=== PATIENT | female | born 1945 | race Caucasian/White ===

== ENCOUNTER 2016-12-25 18:15 | Inpatient (IN) | payer MEDICARE ==
[~2016-12-25] VITALS: Ht 152.4 cm; Wt 62.3 kg
--- NOTE | ~2016-12-25 | PR ---
[place], [place] PROGRESS NOTE NAME: ABELARDO SOTO UNIT #: [id number] ROOM: 522 DOCTOR: ELIEZER YI MD,MARIAMA BIRTHDATE: [birth year] DOS: 12/28/2016 PULMONARY FOLLOWUP SUBJECTIVE: She has been sitting on the chair this morning. Shortness of breath and wheezing symptoms have been resolving. There were no symptoms of chest pain. OBJECTIVE: VITAL SIGNS: Show normal temperature, respiratory rate 20, heart rate of 78, blood pressure 153/84. Pulse oxygen saturation of the patient on room air was 98% saturation recorded. HEENT: No acute change. NECK: Supple. CARDIOVASCULAR: S1, S2 audible. LUNGS: No wheezing or crackles at this time. ABDOMEN: Soft, nontender, bowel sounds present. LABORATORY DATA: No new labs were done today. The blood culture from 12/25/2016 showed no bacterial growth. IMPRESSION: The patient has significant debility with acute exacerbation of chronic obstructive pulmonary disease, acute tracheobronchitis, and acute on chronic nicotine dependence as well. PLAN OF TREATMENT: No changes in the plan of therapy at this time. Continue the patient's current therapy, plan of management and care. Usual care. All other supportive plan and management as previously. MARIAMA MARTINS MD CM:PNTRANS [id number] MARIAMA YI MD 12/29/16 1514 interface
--- NOTE | ~2016-12-25 | PR ---
[place], [place] PROGRESS NOTE NAME: ABELARDO SOTO UNIT #: [id number] ROOM: 522 DOCTOR: ELIEZER YI MD,MARIAMA BIRTHDATE: [birth year] DOS: 12/29/2016 SUBJECTIVE: She was still noted symptoms of shortness of breath with exertion and/or debility. Denies symptoms of chest pain. OBJECTIVE: VITAL SIGNS: Normal temperature, respiratory rate 18, heart rate 99, blood pressure 130/72. Pulse oxygen saturation on room air was 93% saturation. HEENT: Examination shows no new change. NECK: Supple. CARDIOVASCULAR: S1, S2 is audible. LUNGS: The patient noted with moderate reduction in the breath sounds bilaterally. ABDOMEN: Soft, nontender. LABORATORY DATA: CBC today was noted as normal. Creatinine of the patient was noted as normal. IMPRESSION: The patient with ongoing acute exacerbation of chronic obstructive pulmonary disease, acute tracheobronchitis, and debility, still awaiting for this patient for admission in the alf facility. PLAN OF TREATMENT: No changes in the plan of management. Continue the patient's current therapy and care. Usual medical management and other treatments. MARIAMA MARTINS MD CM:PNTRANS [id number] MARIAMA YI MD 12/30/16 0718 interface
--- NOTE | ~2016-12-25 | CON ---
[place], [place] REPORT OF CONSULTATION [id number] UNIT #: [id number] ROOM: 522 DOCTOR: MARIAMA ARMAS MD BIRTHDATE: [birth year] DOS: 12/27/2016 REASON FOR CONSULTATION: Assess the patient with recurrent acute exacerbation of chronic obstructive pulmonary disease. HISTORY OF PRESENT ILLNESS: The patient is a 71-year-old female from a correction. The patient has been noted with history of chronic symptoms of shortness of breath. The patient has been noted worsening of the respiratory symptoms of shortness of breath, associated with wheezing, coughing with greenish sputum expectoration. The patient's symptoms have been noted progressively worsened and brought to the hospital for further assessment. The patient was noted with acute exacerbation of chronic obstructive pulmonary disease as well and required hospitalization. She denies symptoms of chest pain. Denies any symptoms of hemoptysis. REVIEW OF SYSTEMS: CONSTITUTIONAL: Fatigue and tiredness noted with no short of breath, fever, or chills. EYES: Denies any burning, redness, or tenderness. EARS, NOSE, THROAT: No sore throat, hoarseness, otalgia, postnasal drainage. CARDIOVASCULAR: Denies anginal pain, edema or pain of the lower extremities. GASTROINTESTINAL: Denies dysphagia, nausea, vomiting, diarrhea, abdominal pain, hematemesis, or melena. GENITOURINARY: Denies dysuria, suprapubic pain, hematuria. MUSCULOSKELETAL: Denies acute joint pain, redness, or tenderness. SKIN: Denies lesions or rashes. Remaining systems were reviewed with the patient and they were noted all negative. PAST MEDICAL HISTORY: 1. The patient was noted with history of longstanding centrilobular emphysema. 2. General anxiety disorder. 3. Gastroesophageal reflux. 4. Past history of CVA. 5. Hyperlipidemia. 6. Parkinsonism. 7. Degenerative arthritis. 8. History of depression. 9. Persistent nicotine dependence. SOCIAL HISTORY: The patient has been noted smoking cigarettes, a pack of cigarettes per day since age of [age] years old, actively smoked by the patient. There was no history of alcohol use or illicit drug use. PAST SURGICAL HISTORY: 1. The patient noted with left hip surgery. 2. Partial thyroidectomy, the patient with goiter. FAMILY HISTORY: The patient's father at 70 years old from complication of cancer. Mother at the age of 7070 years old, complication related to the [place], [place] REPORT OF CONSULTATION NAME: ABELARDO SOTO UNIT #: [id number] ROOM: 522 DOCTOR: ELIEZER YI MD,MARIAMA BIRTHDATE: [birth year] lung cancer. HOME MEDICATIONS: Noted use of aspirin, Lipitor, baclofen, nebulized by bronchodilators, Imdur. DRUG ALLERGY HISTORY: Noted as no known drug allergies. PHYSICAL EXAMINATION: GENERAL: A 71-year-old female who has been currently noted to be awake and alert without any distress at time of the assessment. Height is noted as 5 feet, weight of 137 pounds, BMI 26.8. VITAL SIGNS: Shows normal temperature, respiratory rate 20, heart rate of 108-78, blood pressure 127/53-142/75. Pulse oxygen saturation on room air is 94% saturation recorded. HEENT: No new change. Head is atraumatic. Eyes nonicterus. NECK: Supple. CARDIOVASCULAR: S1, S2 audible. LUNGS: Shows generalized reduced breath sounds noted in the lungs bilaterally with mild to moderate expiratory wheezing, no crackles. ABDOMEN: Soft, flat, nontender, bowel sounds present. CENTRAL NERVOUS SYSTEM: The patient's cranial nerves 2 through 12 intact. No focal deficit. MUSCULOSKELETAL: No acute deformities. SKIN: No lesions or rashes. MUSCULOSKELETAL: No deformities. LABORATORY DATA: CBC of the patient on 12/25/2016 on admission was noted essentially WBC count normal, hemoglobin 13.8, hematocrit 42.5 and platelet count 239,000. Lactic acid on 12/25/2016 was 2.0. PT/PTT on 12/25/2016 normal. CMP of the patient on 12/25/2016, glucose 153, BUN and creatinine was normal. CK-MB and troponin first set was normal. Additional 2 sets of CK-MB, troponin of the patient on 12/25/2016 was normal. CBC of patient 12/26/2016 remains normal. BMP of the patient 12/26/2016, glucose 145, BUN and creatinine was normal. Blood culture shows no bacterial growth. The chest x-ray of the patient 1 view, which were done in the Emergency Room on 12/25/2016 does not show any acute pulmonary infiltration, changes of COPD were noted. Possibility of some area of scarring in the left lower lobe cannot be completely excluded. IMPRESSION: 1. The patient had been currently admitted to the hospital noted with acute exacerbation of chronic obstructive pulmonary disease, acute tracheobronchitis, history of chronic nicotine dependence. The patient was advised for persistent chronic tobacco dependence. 2. Acute bacterial bronchitis as well. 3. Possibility of some area of scarring in the left lower lobe noted unclear significance. 4. Family history of lung cancer in the mother. PLAN OF TREATMENT: Continue Solu-Medrol, bronchodilators, oxygen supplementation and the antibiotics. Upon improvement in the respiratory [place], [place] REPORT OF CONSULTATION NAME: ABELARDO SOTO UNIT #: [id number] ROOM: 522 DOCTOR: ELIEZER YI MD,MARIAMA BIRTHDATE: [birth year] symptoms, switch the patient's oral medications and then discharge home. Other supportive therapy, plan of management at this time to be continued otherwise. Usual care. Further treatment changes will be done based on the progression of the illness. No other treatment changes at the present time. The patient has been addressed about the tobacco cessation, but she stated clearly she does not wish to stop smoking cigarettes and continue to smoke cigarettes at this time even with history of chronic obstructive pulmonary disease and lung cancer in her family members with high risk of malignancy could occur in the patient in the future. MARIAMA MARTINS MD CM:CONSTR:REPORT OF CONSULTATION 1648 12/28/16 0713 interface
[~2016-12-25 18:15] MED LIST: ACETAMINOPHEN-H1 TA2 PO; ALBUTEROL0.09 MG/A2 IH; ALLOPURINOL100 MG PO; AMOXICILLIN500 M3 PO; ASPI-COR81 M1 PO; ASPIR LOW81 MG PO; ASPIRIN ADULT L81 M1 PO; ATIVAN1 MG PO; ATORVASTATIN CA40 M1 PO; AZITHROMYCIN500 MG PO; B12,B-12,B 12500 MC1 PO; BIAXIN500 MG PO; BUSPIRONE HCL10 MG PO; CORDROL20 MG PO; CRESTOR10 MG PO; DARVOCET N 1001 TAB PO; DAYPRO600 M1 PO; DELTASONE5 MG PO; DOXYCYCLINE100 M2 PO; DUONEB 3 MG/3 ML3 M1 INH; FIORICET 325 MG1 TAB PO; Fioricet 325 MG1 TAB PO; HYDROCODONE BIT1 T11 PO; IMDUR SA30 MG PO; IMITREX100 MG PO; ISOSORBIDE MONO30 MG PO; LEVAQUIN750 MG PO; LIPITOR40 MG PO; MELOXICAM15 MG PO; MOTRIN800 MG PO; MUCINEX D 12001 TER PO; MUCINEX600 MG PO; NEBULIZER; OMEPRAZOLE D/R20 MG PO; PRED-PAK 455 MG PO; PREDNICOT10 MG PO; PREDNISONE10 MG PO; PREDNISONE20 MG PO; ROBAXIN500 MG PO; ROBAXIN750 MG PO; ROBITUSSIN AC 110 ML PO; ROBITUSSIN DM 105 ML PO; SYMBICORT1 AE1 IH; TESSALON PERLE100 M1 PO; TRAMADOL HCL50 MG PO; ULTRAM50 MG PO; VALIUM5 MG PO; VIBRAMYCIN100 MG PO; VICODIN 5/500 505 MG PO; VICODIN 500 MG-1 TAB PO; VOLTAREN50 M1 PO; ZITHROMAX TRI-500 M1 PO; ZITHROMAX Z PA250 MG PO; ZITHROMAX250 MG PO; ZITHROMAX500 MG PO
[2016-12-25 18:17] VITALS: BP 153/77
[2016-12-25 18:39] LABS: BASO # 0.1 10*3/uL (0.0-0.1); BASO % 0.5 % (0.0-1.0); EOS # 0.1 10*3/uL (0.0-0.4); EOS % 1.2 % (1.0-4.0); HEMATOCRIT 42.5 % (37.0-47.0); HEMOGLOBIN 13.8 g/dl (12.0-16.0); LYMPH # 1.7 10*3/uL (1.3-4.4); LYMPH % 16.8 % (27.0-41.0); MEAN CELL VOLUME 86.7 fl (81.0-99.0); MEAN CORPUSCULAR HGB 28.2 pg (27.0-31.0); MEAN CORPUSCULAR HGB CONC 32.5 g/dl (33.0-37.0); MEAN PLATELET VOLUME 9.6 fl (9.6-12.3); MONO # 0.6 10*3/uL (0.1-1.0); MONO % 6.3 % (3.0-9.0); NEUT # 7.4 10*3/uL (2.3-7.9); NEUT % 74.9 % (47.0-73.0); PLATELET COUNT AUTOMATED 239 10*3/uL (130-400); RED CELL DISTRI WIDTH 13.6 % (0-14.5); WHITE BLOOD COUNT 9.8 10*3/uL (4.8-10.8)
[2016-12-25 18:48] LABS: INTERNATIONAL NORM RATIO 0.9 (2.0-3.5)
[2016-12-25 18:55] LABS: ALBUMIN 3.7 gm/dl (3.1-4.5); BILIRUBIN, TOTAL 0.3 mg/dl (0.2-1.0); BUN 12 mg/dl (7-24); CARBON DIOXIDE 29 mmol/L (21-32); CHLORIDE 105 mmol/L (98-107); EST GLOM FILT AFRICAN AMERICAN > 60 ml/min; GLUCOSE 153 mg/dL (65-99); MAGNESIUM 2.2 mg/dL (1.5-2.1); POTASSIUM 3.8 mmol/L (3.5-5.1); SGOT/AST 16 IU/L (3-35); SGPT/ALT 15 U/L (12-78); SODIUM 141 mmol/L (136-145); TOTAL PROTEIN 7.3 gm/dL (6.4-8.2)
[2016-12-25 18:56] LABS: ALKALINE PHOSPHATASE 91 U/L (45-117); C-REACTIVE PROTEIN < 0.29 MG/DL (0-0.3); CKMB 0.7 ng/ml (0.5-3.6); CPK 62 U/L (26-192); TROPONIN I < 0.015 ng/ml (<0.045)
[2016-12-25] MEDS ORDERED: BACLOFEN PO (19:04)
[2016-12-25 20:00] VITALS: BP 156/75
[2016-12-25 20:30] VITALS: BP 156/74
[2016-12-26 00:21] VITALS: BP 148/72
[2016-12-26 04:00] VITALS: BP 155/70
[2016-12-26 07:31] LABS: BASO % 0.2 % (0.0-1.0); HEMATOCRIT 42.3 % (37.0-47.0); HEMOGLOBIN 13.5 g/dl (12.0-16.0); LYMPH # 0.8 10*3/uL (1.3-4.4); LYMPH % 13.5 % (27.0-41.0); MEAN CELL VOLUME 87.4 fl (81.0-99.0); MEAN CORPUSCULAR HGB 27.9 pg (27.0-31.0); MEAN CORPUSCULAR HGB CONC 31.9 g/dl (33.0-37.0); MEAN PLATELET VOLUME 9.7 fl (9.6-12.3); MONO # 0.1 10*3/uL (0.1-1.0); MONO % 1.2 % (3.0-9.0); NEUT # 4.8 10*3/uL (2.3-7.9); NEUT % 84.7 % (47.0-73.0); PLATELET COUNT AUTOMATED 232 10*3/uL (130-400); RED BLOOD COUNT 4.84 10*6/uL (4.10-5.10); RED CELL DISTRI WIDTH 13.6 % (0-14.5); WHITE BLOOD COUNT 5.6 10*3/uL (4.8-10.8)
[2016-12-26 07:50] LABS: HEMOGLOBIN A1c 5.9 % (4.8-5.6)
[2016-12-26 07:56] LABS: BUN 12 mg/dl (7-24); CARBON DIOXIDE 23 mmol/L (21-32); CHLORIDE 110 mmol/L (98-107); EST GLOM FILT AFRICAN AMERICAN > 60 ml/min; FREE T4 1.21 ng/dl (0.76-1.46); GLUCOSE 145 mg/dL (65-99); POTASSIUM 4.4 mmol/L (3.5-5.1); SODIUM 142 mmol/L (136-145)
[2016-12-26 08:00] VITALS: BP 135/97
[2016-12-26 08:01] LABS: THYROID STIM HORMONE (HS) < 0.005 uIU/ml (0.358-4.75)
[2016-12-26 08:05] LABS: VITAMIN D, 25-HYDROXY 15.6 ng/mL (30-100)
[2016-12-26 08:06] LABS: FOLIC ACID 16.66 ng/mL (>5.38)
[2016-12-26] MEDS ORDERED: BACLOFEN20 M1 PO (11:05)
[2016-12-26 12:00] VITALS: BP 133/53
[2016-12-26 16:00] VITALS: BP 149/84
[2016-12-26 20:00] VITALS: BP 124/70
[2016-12-27] VITALS: BP 124/67
[2016-12-27 04:00] VITALS: BP 125/70
[2016-12-27 08:00] VITALS: BP 142/75
[2016-12-27 12:00] VITALS: BP 127/53
[2016-12-27] MEDS ORDERED: VENTOLIN H0.09 MG/AC INH (15:25)
[2016-12-27] MEDS ORDERED: PREDNISONE10 MG PO (15:25)
[2016-12-27] MEDS ORDERED: D-1000 185 MG-11 TAB PO (15:25)
[2016-12-27] MEDS ORDERED: LEVOFLOXACIN500 MG PO (15:25)
[2016-12-27 16:00] VITALS: BP 132/61
[2016-12-27 20:00] VITALS: BP 140/70
[2016-12-28] VITALS: BP 153/84
[2016-12-28 08:00] VITALS: BP 149/63
[2016-12-28 12:00] VITALS: BP 130/56
[2016-12-28 16:00] VITALS: BP 117/69
[2016-12-28 19:58] VITALS: BP 116/70
[2016-12-29] VITALS: BP 152/69
[2016-12-29 07:39] LABS: BASO % 0.6 % (0.0-1.0); EOS # 0.3 10*3/uL (0.0-0.4); EOS % 3.9 % (1.0-4.0); HEMOGLOBIN 14.3 g/dl (12.0-16.0); LYMPH # 1.7 10*3/uL (1.3-4.4); LYMPH % 23.5 % (27.0-41.0); MEAN CELL VOLUME 87.2 fl (81.0-99.0); MEAN CORPUSCULAR HGB 27.7 pg (27.0-31.0); MEAN CORPUSCULAR HGB CONC 31.8 g/dl (33.0-37.0); MEAN PLATELET VOLUME 10.1 fl (9.6-12.3); MONO # 0.6 10*3/uL (0.1-1.0); MONO % 7.7 % (3.0-9.0); NEUT # 4.6 10*3/uL (2.3-7.9); PLATELET COUNT AUTOMATED 233 10*3/uL (130-400); RED BLOOD COUNT 5.16 10*6/uL (4.10-5.10); RED CELL DISTRI WIDTH 13.7 % (0-14.5); WHITE BLOOD COUNT 7.2 10*3/uL (4.8-10.8)
[2016-12-29 08:00] VITALS: BP 152/84
[2016-12-29 08:08] LABS: EST GLOM FILT AFRICAN AMERICAN > 60 ml/min
[2016-12-29 12:00] VITALS: BP 130/72
== END 2016-12-29 15:44 | disposition other institution (70) | DRG 871 ==
LOC: ED 18:15 → 5E 18:54 → EDHOLD 18:54 → 5E 19:51
PROVIDERS: Emergency Medicine; Internal Medicine; Internal Medicine Hospice and Palliative Medicine
DX: A41.9 Sepsis, unspecified organism (principal); J18.9 Pneumonia, unspecified organism; I67.1 Cerebral aneurysm, nonruptured; I11.0 Hypertensive heart disease with heart failure; I50.32 Chronic diastolic (congestive) heart failure; J44.1 Chronic obstructive pulmonary disease with (acute) exacerbation; J44.0 Chronic obstructive pulmonary disease with (acute) lower respiratory infection; G20 Parkinson's disease; G89.29 Other chronic pain; M25.552 Pain in left hip; F32.9 Major depressive disorder, single episode, unspecified; F41.1 Generalized anxiety disorder; K21.9 Gastro-esophageal reflux disease without esophagitis; E78.5 Hyperlipidemia, unspecified; F17.210 Nicotine dependence, cigarettes, uncomplicated; D72.810 Lymphocytopenia; R73.9 Hyperglycemia, unspecified; E83.41 Hypermagnesemia; J20.9 Acute bronchitis, unspecified; E89.0 Postprocedural hypothyroidism; Z80.1 Family history of malignant neoplasm of trachea, bronchus and lung; Z79.82 Long term (current) use of aspirin; Z71.6 Tobacco abuse counseling; Z86.73 Personal history of transient ischemic attack (TIA), and cerebral infarction without residual deficits; Z79.899 Other long term (current) drug therapy

== ENCOUNTER → 2017-02-16 | Outpatient (CLI) | payer MEDICARE ==
[~2017-02-16] MED LIST changes: +BACLOFEN PO; +BACLOFEN20 M1 PO; +D-1000 185 MG-11 TAB PO; +LEVOFLOXACIN500 MG PO; +VENTOLIN H0.09 MG/AC INH
== END | disposition home or self-care (01) ==
LOC: MRI 07:42
DX: M54.2 Cervicalgia (principal); G31.85 Corticobasal degeneration

== ENCOUNTER → 2017-04-07 | Outpatient (CLI) | payer MEDICARE | END | disposition home or self-care (01) | LOC: RAD 11:00 | DX: Z13.820 Encounter for screening for osteoporosis (principal); M81.0 Age-related osteoporosis without current pathological fracture; N95.9 Unspecified menopausal and perimenopausal disorder ==

== ENCOUNTER → 2018-01-31 | Outpatient (CLI) | payer MEDICARE | END | disposition home or self-care (01) | LOC: ORTHO 03:25 | DX: M19.072 Primary osteoarthritis, left ankle and foot (principal); M81.8 Other osteoporosis without current pathological fracture ==

== ENCOUNTER → 2019-03-24 | Outpatient (CLI) | payer MEDICARE ==
--- NOTE | ~2019-03-24 | PROC NOTE ---
[place], [place] PROCEDURE NOTE NAME: MICHELLE SHEA UNIT #: [id number] ROOM: DOCTOR: HECTORMARIELA BIRTHDATE: [birth year] DOS: 03/24/2019 MODIFIED BARIUM SWALLOW ORDERING PHYSICIAN: Dr. Torres. RADIOLOGIST: Dr. Mondragon. BACKGROUND INFORMATION: Michelle Shea a 73-year-old female was seen for a modified barium swallow as an outpatient. The patient comes from a detention and reported that she is having difficulty swallowing pills. MEDICAL HISTORY: Significant for CVA x 3, GERD, COPD and anxiety and depression. The patient receives a regular diet and thin liquid. She was alert and cooperative for the examination. Respiratory status was noted as congested. The patient was not requiring oxygen. Oral peripheral examination revealed a couple bottom teeth only, which were noted to be in poor condition. Lingual, labial, and buccal skills were grossly within normal limits in terms of strength, range of motion, and coordination. The patient was able to volitionally cough and swallow. METHODS AND MATERIALS USED FOR THE EXAM: The patient was positioned in the lateral plane and the exam was viewed under fluoroscopy. The patient was presented with a variety of consistencies to assess swallowing skills including applesauce mixed with barium presented in half teaspoon amounts, barium-coated banana and sandwich given in bite size pieces and thin liquid barium taken by cup and barium pill. LABIAL SEAL: Grossly within normal limits. The patient displayed mastication that was slow, but functional due to dentition. No oral difficulty was displayed. PHARYNGEAL PHASE: Unremarkable. ESOPHAGEAL PHASE: This phase of the swallow was not formally assessed during this exam. IMPRESSIONS AND RECOMMENDATIONS: Based upon assessment results, this 73-year-old patient presents with swallowing skills that are within functional limits. Recommend she remain on present diet with use of universal safe swallow precautions. Recommend the patient take pills in applesauce and follow with liquid as needed. No followup therapy is warranted. Results and recommendations were shared with the patient and a written copy was provided for education of detention staff. Thank you very much for this referral. Should you have any questions regarding this patient, please contact the speech pathologist at [phone]. [place], [place] PROCEDURE NOTE NAME: MICHELLE SHEA UNIT #: [id number] ROOM: DOCTOR: MARIELA YOUNG BIRTHDATE: [birth year] MARIELA YOUNG CM:PROCNOTE:PROCEDURE NOTE [id number] MARIELA YOUNG
--- NOTE | ~2019-03-24 | SLPIE ---
[place], [place] CLINICAL TRIALS ASSISTANT INITIAL EVALUATION NAME: ABELARDO SOTO UNIT #: [id number] ROOM: DOCTOR: JEREMIAS CASAS DO Patient Name: ABELARDO SOTO Date: 03/24/2019 Patient Date of : 1945 [facility] Start of Care: 03/24/2019 Reason for Treatment: RAD/SH Primary Care Physician: HAILEY CHAU FACP, M.D. Referring Physician: JEREMIAS CASAS DO Speech-Language Pathology Initial Evaluation Reason for Visit RAD/SH Arrival Information Subjective Initial evaluation created to generate electronic medical record. [facility] for full [facility]. Medical History Past Medical History [facility] Visit Start Time 9:00 AM Visit End Time 10:00 AM Visit Duration 60 minutes Procedures CPT [place] Code Intervention Modifier Minutes Units 4500939 MOTION FLUOROSCOPY/SWALLOW 60 1 41142 Total Timed Minutes 0 Total Treatment Minutes 60 Therapist Signature(s) Signed By: Racheal Tovar [facility] License #: [id number] 04/03/2019, 1:52 PM CM:MARCELA 32 32 IS THERAPY [facility]
--- NOTE | ~2019-03-24 | SHMRC ---
[place], [place] THERAPY MRC NAME: ABELARDO SOTO UNIT #: [id number] ROOM: DOCTOR: JEREMIAS CASAS DO Patient Name: ABELARDO SOTO Date: 03/24/2019 Patient Number: [id number] Treating Therapist:Racheal Tovar Patient Date of : 1945 Location: [facility] Patient Reason for Visit RAD/SH Electronic Signature(s) Signed By: Date: Racheal Tovar 04/03/2019 13:52:47 Entered By: Racheal Tovar on 04/03/2019 13:49:12 Arrival Information Patient Name: ABELARDO SOTO Date: 03/24/2019 Patient Number: [id number] Treating Therapist:Racheal Tovar Patient Date of : 1945 Location: [facility] Patient Subjective Initial evaluation created to generate electronic medical record. Refer to medical record in [facility] for full evaluation. Electronic Signature(s) Signed By: Date: Racheal Tovar 04/03/2019 13:52:47 Entered By: Racheal Tovar on 04/03/2019 13:49:12 Medical History Patient Name: ABELARDO SOTO Date: 03/24/2019 Patient Number: [id number] Treating Therapist:Racheal Tovar Patient Date of : 1945 Location: [facility] Patient Past Medical History Electronic Signature(s) Signed By: Date: Racheal Tovar 04/03/2019 13:52:47 Entered By: Racheal Tovar on 04/03/2019 13:49:12 Allergy List Patient Name: ABELARDO SOTO. Date: 03/24/2019 Patient Number: [id number] Treating Therapist:Racheal Tovar Patient Date of : 1945 Location: [facility] Patient Electronic Signature(s) Signed By: Date: Racheal Tovar 04/03/2019 13:52:47 Entered By: Racheal Tovar on 04/03/2019 13:49:12 Arrival Information Patient Name: ABELARDO SOTO Date: 03/24/2019 Patient Number: [id number] Treating Therapist:Racheal Tovar Patient Date of : 1945 Location: [facility] Patient Subjective Initial evaluation created to generate electronic medical record. Refer to medical record in [facility] for full evaluation. Electronic Signature(s) [place], [place] THERAPY [facility]C NAME: ABELARDO SOTO UNIT #: [id number] ROOM: DOCTOR: JEREMIAS CASAS DO Signed By: Date: Racheal Tovar 04/03/2019 13:52:47 Entered By: Racheal Tovar on 04/03/2019 13:49:12 [facility] Patient Name: ABELARDO SOTO Date: 03/24/2019 Patient Number: [id number] Treating Therapist:Racheal Tovar Patient Date of : 1945 Location: [facility] Patient Visit Start Time 9:00 AM Visit End Time 10:00 AM Visit Duration 60 minutes Procedures CPT [place] Code Intervention Modifier Minutes Units 58662 [id number] MOTION FLUOROSCOPY/SWALLOW 60 1 Total Timed Minutes 0 Total Treatment Minutes 60 Electronic Signature(s) Signed By: Date: Racheal Tovar 04/03/2019 13:52:47 Entered By: Racheal Tovar on 04/03/2019 13:50:07 Chief Complaint Patient Name: ABELARDO SOTO. Date: 03/24/2019 Patient Number: [id number] Treating Therapist:Racheal Tovar Patient Date of : 1945 Location: [facility] Patient Reason for Visit RAD/SH Electronic Signature(s) Signed By: Date: Racheal Tovar 04/03/2019 13:52:47 Entered By: Racheal Tovar on 04/03/2019 13:49:12 Medical History Patient Name: ABELARDO SOTO. Date: 03/24/2019 Patient Number: [id number] Treating Therapist:Racheal Tovar Patient Date of : 1945 Location: [facility] Patient Past Medical History Electronic Signature(s) Signed By: Date: Racheal Tovar 04/03/2019 13:52:47 Entered By: Racheal Tovar on 04/03/2019 13:49:12 Allergy List Patient Name: ABELARDO SOTO Date: 03/24/2019 Patient Number: [id number] Treating Therapist:Racheal Tovar Patient Date of : 1945 Location: [facility] Patient Electronic Signature(s) Signed By: Date: [place], [place] THERAPY [facility]C NAME: ABELARDO SOTO UNIT #: [id number] ROOM: DOCTOR: JEREMIAS CASAS DO, Maryann 04/03/2019 13:52:47 Entered By: Racheal Tovar on 04/03/2019 13:49:12 CM:[facility] 32 32 IS THERAPY [place]
--- NOTE | ~2019-03-24 | SLPPOC ---
[place], [place] ELECTRICIAN RADIO PLAN OF CARE NAME: ABELARDO SOTO UNIT #: [id number] ROOM: DOCTOR: JEREMIAS CASAS DO Patient Name: ABELARDO SOTO Date: 03/24/2019 Patient Date of : 1945 [facility] Start of Care: 03/24/2019 Reason for Treatment: RAD/SH Visits since start of care: 1 Primary Care Physician: HAILEY CHAU FACP, M.D. Referring Physician: JEREMIAS CASAS DO Speech-Language Pathology Initial Evaluation Plan of Care Reason for Visit RAD/SH Arrival Information Subjective Initial evaluation created to generate electronic medical record. Refer to medical record in [facility] for full evaluation. Medical History Past Medical History Therapist Signature(s) Signed By: Racheal Tovar [facility] License #: [id number] 04/03/2019, 1:52 PM Referring Physician Signature I certify the need for these services furnished under this plan of treatment and while under my care. JEREMIAS CASAS DO Date/Time CM:SLPPOC 32 32 IS THERAP[facility] [place]
--- NOTE | 2019-03-24 10:23 | NUR ---
SPEECH PATHOLOGY Outpatient MBS completed as per orders. Patient is from a correction and reported that she is having difficulty swallowing pills. Medical history is significant for CVA X3, GERD, COPD, anxiety/depression. Patient receives a regular diet and thin liquid. She was alert and cooperative and displayed lingual/labial/buccal skills grossly WNL in terms of strength, ROM and coordination. Patient had a couple bottom teeth only, noted to be in poor condition. She was assessed with puree, solids including banana and sandwich, thin liquid and barium pill. Mastication was slow but functional, due to dentition. Patient swallowed all consistencies with no overt difficulty and there was no penetration/aspiration or residue with any item. Recommend patient remain on present diet with use of universal safe swallow precautions. Recommend patient take pills in applesauce and follow with liquid as needed. No follow up is warranted. Results and rubi. were shared with patient and a written copy was provided for education of NH staff. Dictated report to follow. Thank you for this referral. MARIELA YOUNG MSCCC-CIRCULAR HEAD SAW OPERATOR
== END | disposition home or self-care (01) ==
LOC: RAD/SH 08:45
DX: R05 Cough (principal)

== ENCOUNTER → 2019-04-03 | Outpatient (CLI) | payer MEDICARE | END | disposition home or self-care (01) | LOC: RAD 03-14 13:00 | DX: M81.0 Age-related osteoporosis without current pathological fracture (principal) ==

== ENCOUNTER 2019-12-19 13:16 | Inpatient (IN) | payer MEDICARE ==
[~2019-12-19] VITALS: Wt 63.7 kg
[2019-12-19 13:20] VITALS: BP 172/88
[2019-12-19 14:14] LABS: BASO # 0.1 10*3/uL (0.0-0.1); BASO % 0.8 % (0.0-1.0); EOS # 0.2 10*3/uL (0.0-0.4); EOS % 3.1 % (1.0-4.0); HEMATOCRIT 47.7 % (37.0-47.0); LYMPH # 1.6 10*3/uL (1.3-4.4); LYMPH % 19.9 % (27.0-41.0); MEAN CELL VOLUME 89.8 fl (81.0-99.0); MEAN CORPUSCULAR HGB 28.6 pg (27.0-31.0); MEAN CORPUSCULAR HGB CONC 31.9 g/dl (33.0-37.0); MEAN PLATELET VOLUME 9.6 fl (9.6-12.3); MONO # 0.5 10*3/uL (0.1-1.0); MONO % 6.9 % (3.0-9.0); NEUT # 5.4 10*3/uL (2.3-7.9); PLATELET COUNT AUTOMATED 230 10*3/uL (130-400); RED BLOOD COUNT 5.31 10*6/uL (4.10-5.10); RED CELL DISTRI WIDTH 12.9 % (0-14.5); WHITE BLOOD COUNT 7.9 10*3/uL (4.8-10.8)
[2019-12-19 14:37] LABS: ALBUMIN 3.1 gm/dl (3.1-4.5); ALKALINE PHOSPHATASE 94 U/L (45-117); BUN 12 mg/dl (7-24); CHLORIDE 108 mmol/L (98-107); CREATININE 0.76 mg/dL (0.55-1.02); SGOT/AST 14 IU/L (3-35); SGPT/ALT 15 U/L (12-78); SODIUM 142 mmol/L (136-145); TOTAL PROTEIN 7.1 gm/dL (6.4-8.2)
[2019-12-19 14:42] LABS: TROPONIN I < 0.015 ng/ml (<0.045)
[2019-12-19 17:45] VITALS: BP 148/82
[2019-12-19 19:15] VITALS: BP 137/74
--- NOTE | 2019-12-19 19:15 | NUR ---
A 74, admitted to , under the services of REZA Peña DO with a diagnosis of CHF. Chief complaint is MULIPLE. Patient arrived via bed from ER. Monitor applied. Initial assessment completed. Vital signs taken and recorded. REZA PEÑA DO notified of admission to the unit. Orders received. See assessment for past medical history, medications and allergies. Patient and/or family oriented to unit. [address] visitation policy reviewed. Clothing/patient valuable form completed. EXCORIATION UNDER BILATERAL BREASTS. NO OPEN AREAS FOUND ON ADMISSION. ADEN BINGHAM
--- NOTE | 2019-12-19 20:00 | NUR ---
DR BELLO AWARE OF EXCORIATION UNDER BREASTS, STATES OKAY TO PUT IN [place]STATIN POWDER UNDER HIS NAME.
--- NOTE | 2019-12-19 20:01 | NUR ---
DR BELLO AWARE THAT PT IS UNSURE OF HOME MEDICATIONS. WILL PASS ALONG TO AM SHIFT THAT HER PHARMACY WILL NEED CALLED.
[2019-12-19 20:07] LABS: BILIRUBIN NEGATIVE (NEGATIVE); CLARITY CLEAR (CLEAR); COLOR YELLOW (YELLOW); GLUCOSE NEGATIVE (NEGATIVE); KETONE NEGATIVE (NEGATIVE); SPECIFIC GRAVITY 1.015 (1.005-1.030)
[2019-12-19 20:08] LABS: BACTERIA 1+; BLOOD NEGATIVE (NEGATIVE); LEUKO ESTERASE 2+ (NEGATIVE); NITRITE NEGATIVE (NEGATIVE); PH 6.5 (5.0-9.0); UROBILINOGEN 0.2 E.U./dl (0.2-1.0); WBC 16-20 wbc/hpf (0-5)
--- NOTE | 2019-12-19 21:55 | NUR ---
MEDICATED WITH TYLENOL FOR C/O BILATERAL LOWER LEG PAIN.
--- NOTE | 2019-12-19 23:00 | NUR ---
RESTING IN BED WITH EYES CLOSED; TYLENOL APPARENTLY EFFECTIVE. 02 BEING MAINTAINED; BED ALARM INTACT. CALL LIGHT WITHIN REACH.
[2019-12-20] VITALS: BP 117/61
--- NOTE | 2019-12-20 05:00 | NUR ---
RESTING IN BED WITH EYES CLOSED. BED ALARM INTACT; CALL LIGHT WITHIN REACH.
[2019-12-20 06:19] LABS: BASO % 0.4 % (0.0-1.0); EOS % 0.8 % (1.0-4.0); HEMATOCRIT 48.1 % (37.0-47.0); LYMPH # 0.7 10*3/uL (1.3-4.4); LYMPH % 13.6 % (27.0-41.0); MEAN CELL VOLUME 87.9 fl (81.0-99.0); MEAN CORPUSCULAR HGB CONC 31.8 g/dl (33.0-37.0); MEAN PLATELET VOLUME 9.7 fl (9.6-12.3); MONO # 0.1 10*3/uL (0.1-1.0); MONO % 2.3 % (3.0-9.0); NEUT # 4.3 10*3/uL (2.3-7.9); NEUT % 82.5 % (47.0-73.0); PLATELET COUNT AUTOMATED 248 10*3/uL (130-400); RED BLOOD COUNT 5.47 10*6/uL (4.10-5.10); RED CELL DISTRI WIDTH 12.6 % (0-14.5); WHITE BLOOD COUNT 5.2 10*3/uL (4.8-10.8)
[2019-12-20 06:37] LABS: BUN 16 mg/dl (7-24); CHLORIDE 102 mmol/L (98-107); CHOLESTEROL 238 mg/dL (<200); CREATININE 0.89 mg/dL (0.55-1.02); HDL CHOLESTEROL 51 mg/dl (40-60); LDL CHOLESTEROL 169 mg/dL (9-159); POTASSIUM 4.1 mmol/L (3.5-5.1); SODIUM 140 mmol/L (136-145); TRIGLYCERIDES 91 mg/dl (<150); VLDL CHOLESTEROL 18 mg/dL (6-40)
--- NOTE | 2019-12-20 07:47 | NUR ---
PHYSICAL THERAPY Screen and PT eval received will follow thank you. Ivis Knight PT
[2019-12-20 08:00] VITALS: BP 122/73
--- NOTE | 2019-12-20 10:00 | NUR ---
[facility]INGHAM CATHETER REMOVED PER ORDER.
--- NOTE | 2019-12-20 10:53 | NUR ---
Occupational Therapy evaluation completed on 4E with full evaluation to follow. Recommend occupational therapy per plan of care and HH upon discharge. Thank you for this referral. Teresa Boo OTR/L
--- NOTE | 2019-12-20 10:54 | NUR ---
PHYSICAL THERAPY Physical Therapy evaluation completed on 4E with full evaluation to follow. Low complexity PT evaluation per chart review and evaluation, [id number]. Recommend physical therapy per plan of care and Home Health upon discharge. Thank you for this referral. Latia Bassett,PT,DPT
[2019-12-20 11:45] VITALS: BP 147/66
[2019-12-20 16:00] VITALS: BP 123/60
[2019-12-20 20:00] VITALS: BP 111/76
--- NOTE | 2019-12-20 21:53 | NUR ---
PATIENT RESTING; EASILY AWAKENS FOR MEDICATIONS. ALL NEEDS MET. BED IN LOWEST, LOCKED POS, CALL LIGHT IN REACH.
[2019-12-21] VITALS: BP 92/65
--- NOTE | 2019-12-21 04:15 | NUR ---
PATIENT ASSIST TO BSC +STANDBY ASSIST. ASSISTED BACK INTO BED, NO FURTHER NEEDS, WILL CONT TO MONITOR.
[2019-12-21 06:30] LABS: BUN 22 mg/dl (7-24); CHLORIDE 104 mmol/L (98-107); CREATININE 0.74 mg/dL (0.55-1.02); POTASSIUM 3.5 mmol/L (3.5-5.1); SODIUM 141 mmol/L (136-145)
--- NOTE | 2019-12-21 08:21 | NUR ---
NO VOICED COMPLAINTS. CALL LIGHT IN REACH. TOLERATED MEDS WELL. EDUCATED ON DVT AND NEED FOR XARELTO. PT VERBALIZED UNDERSTANDING. HACKING COUGH NOTED. PT STATES IT IS NON-PRODUCTIVE.
--- NOTE | 2019-12-21 09:00 | NUR ---
Can Slider in to talk to patient. Patient states lives at home with alone. There are 12 steps in the home. Physician: none at present Pharmacy: [facility] Home health services: none at present Patient's level of ADLs: MINIMAL ASSIST Patient has working utilities: all working DME: nebulzier,wheelchair Follow-up physician's appointment after d/c: will be made by hospitalist nruse director upon discharge with doctor of patient's choise Does patient want to access PORTAL?: no Discharge plan discussed with patient, she states she lives at home alone, she was a half-way resident of [facility], for 3 years, along with her , she stated she decided she didn't want to be in the nursing facility any more and her brother helped her move back to her home. she states she has 12 steps and a wheelchair at home, discussed with her if she was not able to return home and care for herself which nursing facility she would like to go to. she became angry and stated she would never go back to a nursing facility, she stated she would return home and her family would help her if needed. discussed with her [facility] and educated her on the services they provide. she was receptive to this given choice of companies she choose [facility]. will send a referral to [facility] when patient is medically stable for discharge. case management will follow. CRISTIANE PEARCE
--- NOTE | 2019-12-21 10:04 | NUR ---
09:10 PT ASSESSED FOR HOME O2: RA REST SPO2: 93% HR 98/M RA AMBULATING: SPO2 92-93% HR 114 KINGSLEY 5 PT DOES NOT QUALIFY FOR HOME O2.
--- NOTE | 2019-12-21 10:28 | NUR ---
CALLED TO ROOM. PT STATES SHE ACCIDENTALLY PULLED HER IV OUT. BLEEDING CONTROLLED AND GUAZE APPLIED. WILL MONITOR. PT TO BE DISCHARGED LATER TODAY. REFUSING NEW IV AT THIS TIME.
--- NOTE | 2019-12-21 10:30 | NUR ---
case management received a call from patient's brother Ron regarding home equipement. he stated he would like patient to have a hospital bed. educated him that there is specific criteria that patient would need to have a hospital bed and at this time she does not have that criteria. also educated him that patient would have home health services to see her at home, Ron stated he would also be there to help her. Ron stated he would transport patient home when she is discharged
--- NOTE | 2019-12-21 11:00 | NUR ---
PHYSICAL THERAPY Patient seen this am 1;1 for therapy visit and was sitting up on EOB upon therapist arrival. Patient identified by name / and recorded resting HR 95 bpm. OT assistant media planner was also present for observation only this session as patient reports no c/o's pain. Patient transfers sit to stand SBA and ambulates with use of wh walker, 15'x 1 to bathroom, then additional 50'x 1, SBA, demonstrating slow, steady fara. Patient returned to EOB sit as lunch arrived with increased fatigue and remained with call light, tray table and telephone, recording HR 115 bpm following gait ex. Will continue per POC as tolerated, total treatment time 16 minutes. Negro Baldwin, GRANTS ADMINISTRATOR
--- NOTE | 2019-12-21 11:00 | NUR ---
case management left a secure voicemail for Cathy, academic affairs coordinator for [facility], that patient is a discharge to home today
--- NOTE | 2019-12-21 11:20 | NUR ---
OT NOTE Pt was seen this A.M. 1:1 for 15 minute OT session. Upon arrival pt was sitting upright on the EOB. Pt identified by name and and had no complaints at this time, pt's resting heart rate was 93 bpm. While sitting EOB pt donned B socks with supervision. Sit to stand completed from bed level with SBA and use of w/w for UE support. Functional mobility was then completed to the bathroom with SBA and use of w/w. There she transferred on/off standard commode with supervision. She then stood sink side while washing her hands with SBA for safety. Throughout acitivity pt's heart rate increased to 115 bpm. Functional mobility was then completed back to the EOB where she was left sitting upright with call light in hand, tray table in place, and phone in reach. Continue with rec D/C plan to home with home health. MANOJ Marquez/Marysol
[2019-12-21 12:00] VITALS: BP 126/86
--- NOTE | 2019-12-21 14:14 | NUR ---
SHIFT CHART CHECK COMPLETED.
[2019-12-21] MEDS ORDERED: DOXYCYCLINE MO100 M1 PO (14:59)
[2019-12-21] MEDS ORDERED: XARE15TA PO (14:59)
[2019-12-21] MEDS ORDERED: LASIX40 MG PO (14:59)
[2019-12-21] MEDS ORDERED: PREDNISONE10 MG PO (14:59)
--- NOTE | 2019-12-21 15:34 | NUR ---
Discharge instructions reviewed with patient/family. Patient receptive and verbalizes understanding. Follow-up care arranged. Written instructions given to patient/family. SHARDA ALEX
--- NOTE | 2019-12-22 07:27 | NUR ---
PHYSICAL THERAPY CO-SIGN I approve of the Phyical Therapy notes written above. Ivis Knight PT
--- NOTE | 2019-12-22 07:40 | NUR ---
OCCUPATIONAL THERAPY CO-SIGN I approve of the Occupational Therapy notes written above. MICHAEL MADRIGAL, OTR/L
== END 2019-12-21 15:34 | disposition home health service (06) | DRG 190 ==
LOC: ED 13:16 → 4E 16:21 → EDHOLD 16:21 → 4E 17:10
PROVIDERS: Internal Medicine; Nurse Practitioner Family; Student in an Organized Health Care Education/Training Program; ADMIT Internal Medicine
DX: J44.1 Chronic obstructive pulmonary disease with (acute) exacerbation (principal); I50.33 Acute on chronic diastolic (congestive) heart failure; I82.431 Acute embolism and thrombosis of right popliteal vein; F33.0 Major depressive disorder, recurrent, mild; I11.0 Hypertensive heart disease with heart failure; E83.41 Hypermagnesemia; F17.210 Nicotine dependence, cigarettes, uncomplicated; E87.8 Other disorders of electrolyte and fluid balance, not elsewhere classified; M79.672 Pain in left foot; G89.29 Other chronic pain; M25.552 Pain in left hip; E78.5 Hyperlipidemia, unspecified; F41.1 Generalized anxiety disorder; K21.9 Gastro-esophageal reflux disease without esophagitis; G20 Parkinson's disease; Z86.73 Personal history of transient ischemic attack (TIA), and cerebral infarction without residual deficits; Z80.1 Family history of malignant neoplasm of trachea, bronchus and lung; Z79.82 Long term (current) use of aspirin; Z79.899 Other long term (current) drug therapy

== ENCOUNTER 2019-12-28 11:40 | Observation (INO) | payer MEDICARE ==
[~2019-12-28] VITALS: Ht 152.4 cm; Wt 63.6 kg
[~2019-12-28 11:40] MED LIST changes: +DOXYCYCLINE MO100 M1 PO; +LASIX40 MG PO; +XARE15TA PO
[2019-12-28 12:12] LABS: BASO # 0.1 10*3/uL (0.0-0.1); BASO % 0.5 % (0.0-1.0); EOS # 0.2 10*3/uL (0.0-0.4); EOS % 1.5 % (1.0-4.0); HEMATOCRIT 47.6 % (37.0-47.0); LYMPH # 2.9 10*3/uL (1.3-4.4); MEAN CELL VOLUME 88.3 fl (81.0-99.0); MEAN CORPUSCULAR HGB CONC 31.7 g/dl (33.0-37.0); MEAN PLATELET VOLUME 9.5 fl (9.6-12.3); MONO # 0.9 10*3/uL (0.1-1.0); MONO % 6.4 % (3.0-9.0); NEUT # 9.5 10*3/uL (2.3-7.9); NEUT % 69.6 % (47.0-73.0); PLATELET COUNT AUTOMATED 266 10*3/uL (130-400); RED BLOOD COUNT 5.39 10*6/uL (4.10-5.10); RED CELL DISTRI WIDTH 13.1 % (0-14.5); WHITE BLOOD COUNT 13.6 10*3/uL (4.8-10.8)
[2019-12-28 12:23] LABS: ACT PARTIAL THROMBO TIME 22.6 SECONDS (20.0-32.1); INTERNATIONAL NORM RATIO 0.9 (2.0-3.5)
[2019-12-28 12:32] LABS: ALBUMIN 3.3 gm/dl (3.1-4.5); ALKALINE PHOSPHATASE 87 U/L (45-117); BUN 22 mg/dl (7-24); CHLORIDE 103 mmol/L (98-107); CREATININE 0.87 mg/dL (0.55-1.02); POTASSIUM 3.7 mmol/L (3.5-5.1); SGOT/AST 15 IU/L (3-35); SGPT/ALT 19 U/L (12-78); SODIUM 137 mmol/L (136-145); TOTAL PROTEIN 6.9 gm/dL (6.4-8.2)
[2019-12-28 12:33] LABS: LIPASE 426 U/L (73-393)
[2019-12-28 12:35] LABS: TROPONIN I < 0.015 ng/ml (<0.045)
[2019-12-28 13:00] VITALS: BP 138/62
[2019-12-28 14:00] VITALS: BP 140/68
[2019-12-28 15:00] VITALS: BP 143/98
[2019-12-28 15:20] LABS: BILIRUBIN NEGATIVE (NEGATIVE); CLARITY CLEAR (CLEAR); COLOR YELLOW (YELLOW); GLUCOSE NEGATIVE (NEGATIVE); KETONE NEGATIVE (NEGATIVE)
[2019-12-28 15:21] LABS: BACTERIA TRACE; BLOOD NEGATIVE (NEGATIVE); LEUKO ESTERASE NEGATIVE (NEGATIVE); NITRITE NEGATIVE (NEGATIVE); RBC 0-2 rbc/hpf (0-2); UROBILINOGEN 0.2 E.U./dl (0.2-1.0)
[2019-12-28 16:00] VITALS: BP 142/62
[2019-12-28 16:50] VITALS: BP 122/60
[2019-12-28 20:00] VITALS: BP 140/60
[2019-12-29] VITALS: BP 135/48
[2019-12-29 06:22] LABS: BASO % 0.4 % (0.0-1.0); EOS % 0.1 % (1.0-4.0); LYMPH # 1.4 10*3/uL (1.3-4.4); LYMPH % 13.2 % (27.0-41.0); MEAN CELL VOLUME 89.1 fl (81.0-99.0); MEAN CORPUSCULAR HGB 28.1 pg (27.0-31.0); MEAN CORPUSCULAR HGB CONC 31.6 g/dl (33.0-37.0); MEAN PLATELET VOLUME 9.9 fl (9.6-12.3); MONO # 0.6 10*3/uL (0.1-1.0); MONO % 5.6 % (3.0-9.0); NEUT # 8.5 10*3/uL (2.3-7.9); NEUT % 79.7 % (47.0-73.0); PLATELET COUNT AUTOMATED 254 10*3/uL (130-400); RED BLOOD COUNT 5.05 10*6/uL (4.10-5.10); RED CELL DISTRI WIDTH 13.1 % (0-14.5); WHITE BLOOD COUNT 10.6 10*3/uL (4.8-10.8)
[2019-12-29 06:44] LABS: BUN 21 mg/dl (7-24); CHLORIDE 106 mmol/L (98-107); CREATININE 0.87 mg/dL (0.55-1.02); POTASSIUM 4.6 mmol/L (3.5-5.1); SODIUM 139 mmol/L (136-145)
[2019-12-29 09:58] VITALS: BP 110/58
[2019-12-29] MEDS ORDERED: XARELTO1 EACH PO (10:49)
== END 2019-12-29 11:41 | disposition home health service (06) ==
LOC: ED 11:40 → EDHOLD 15:06 → 4E 15:06
PROVIDERS: Emergency Medicine; Student in an Organized Health Care Education/Training Program; ADMIT Internal Medicine
DX: R07.89 Other chest pain (principal); J44.1 Chronic obstructive pulmonary disease with (acute) exacerbation; J18.9 Pneumonia, unspecified organism; A41.9 Sepsis, unspecified organism; D72.829 Elevated white blood cell count, unspecified; D72.810 Lymphocytopenia; E83.41 Hypermagnesemia; R73.9 Hyperglycemia, unspecified; E78.5 Hyperlipidemia, unspecified; F41.1 Generalized anxiety disorder; K21.9 Gastro-esophageal reflux disease without esophagitis; G20 Parkinson's disease; I50.32 Chronic diastolic (congestive) heart failure; I11.0 Hypertensive heart disease with heart failure; F17.210 Nicotine dependence, cigarettes, uncomplicated

== ENCOUNTER 2020-01-18 09:56 | Emergency (ER) | payer MEDICARE ==
[~2020-01-18 09:56] MED LIST changes: +XARELTO1 EACH PO
== END 2020-01-18 11:23 | disposition home or self-care (01) ==
LOC: ED 09:56
DX: R60.0 Localized edema (principal); I10 Essential (primary) hypertension; I25.2 Old myocardial infarction; Z86.73 Personal history of transient ischemic attack (TIA), and cerebral infarction without residual deficits; J44.9 Chronic obstructive pulmonary disease, unspecified; E78.5 Hyperlipidemia, unspecified; Z79.899 Other long term (current) drug therapy; Z79.82 Long term (current) use of aspirin; Z87.891 Personal history of nicotine dependence

== ENCOUNTER 2020-02-04 18:01 | Inpatient (IN) | payer MEDICARE ==
[~2020-02-04] VITALS: Ht 152.4 cm; Wt 62.3 kg
[2020-02-04] VITALS (11 sets, daily range): BP systolic 101–127; BP diastolic 37–74
[2020-02-04 18:43] LABS: MEAN CELL VOLUME 85.6 fl (81.0-99.0); MEAN CORPUSCULAR HGB 24.3 pg (27.0-31.0); MEAN CORPUSCULAR HGB CONC 28.4 g/dl (33.0-37.0); MEAN PLATELET VOLUME 9.6 fl (9.6-12.3); NUCLEATED RED BLOOD CELL 0.2 % (0.0-0.0); PLATELET COUNT AUTOMATED 410 10*3/uL (130-400); RED BLOOD COUNT 2.22 10*6/uL (4.10-5.10); RED CELL DISTRI WIDTH 16.8 % (0-14.5); WHITE BLOOD COUNT 8.4 10*3/uL (4.8-10.8)
[2020-02-04 18:50] LABS: INTERNATIONAL NORM RATIO 1.2 (2.0-3.5)
[2020-02-04 19:01] LABS: ALBUMIN 2.6 gm/dl (3.1-4.5); ALKALINE PHOSPHATASE 99 U/L (45-117); BUN 37 mg/dl (7-24); CHLORIDE 106 mmol/L (98-107); CREATININE 1.22 mg/dL (0.55-1.02); POTASSIUM 4.6 mmol/L (3.5-5.1); SGOT/AST 16 IU/L (3-35); SGPT/ALT 15 U/L (12-78); SODIUM 139 mmol/L (136-145); TOTAL PROTEIN 6.3 gm/dL (6.4-8.2)
[2020-02-04 19:02] LABS: TROPONIN I < 0.015 ng/ml (<0.045)
[2020-02-04 19:06] LABS: BASOPHILS 1 % (0-1); TOTAL CELLS COUNTED 100 #CELLS
[2020-02-04 19:07] LABS: MICROCYTOSIS SLIGHT; PLATELET SUFFICIENCY HIGH (NORMAL); POLYCHROMASIA SLIGHT
--- NOTE | 2020-02-04 19:59 | NUR ---
PTS BROTHER CONTACTED AND I DID ASK PT IF IT WAS OK FOR ME TO SPEAK TO BROTHER TARI. SHE GIVES ME VERBAL PERMISSION TO SPEAK TO BROTHER.
--- NOTE | 2020-02-04 21:31 | NUR ---
A 74, admitted to , under the services of BETTY Maldonado DO with a diagnosis of GI BLEED. Chief complaint is BILATERAL ARM PAIN. Patient arrived via bed from ER. . Initial assessment completed. Vital signs taken and recorded. BETTY MALDONADO DO notified of admission to the unit. Orders received. See assessment for past medical history, medications and allergies. Patient and/or family oriented to [facility]. visitation policy reviewed. Clothing/patient valuable form completed. DALLAS ALEX RN
--- NOTE | 2020-02-04 21:31 | NUR ---
PATIENT ARRIVED FROM ER ESCORTED BY FRANKLIN WARE. PATIENT ARRIVED RECEIVING A UNIT OF PACKED BLOOD CELLS INTO LEFT HAND, BLOOD TRANSFUSING WITHOUT INCIDENT, PATIENT DENIES ANY TRANSFUSION REACTION AT THIS TIME, WILL CONTINUE TO MONITOR. BEDSIDE REPORT RECEIVED AT THIS TIME. PATIENT ASSESSMENT COMPLETED WITHOUT INCIDENT. NO WOUNDS NOTED AT THIS TIME, SEVERAL ECCHYMOTIC AREAS TO BILATERAL ARMS FROM PREVIOUS ADMISSION NOTED. PATIENT ORIENTED TO CALL LIGHT AND ROOM. ADVISED OF FURTHER BLOOD TRANSFUSIONS. WILL CONTINUE TO MONITOR, CALL LIGHT WITHIN REACH.
[2020-02-04] MEDS ORDERED: POTASSIUM CHLO10 ME4 PO (21:44)
--- NOTE | 2020-02-04 22:15 | NUR ---
SPOKE WITH TO VERIFY BLOOD TRANSFUSION ORDERS HE STATED TO "GIVE THE SECOND UNIT AND AFTER THE SECOND UNIT IS DONE THEY WOULD SEE WHAT THE AM BLOOD RESULTS SHOWED TO DETERMINE IF THE OTHER UNITS ARE NEEDED."
--- NOTE | 2020-02-04 22:50 | NUR ---
FIRST UNIT OF PACKED RED BLOOD CELLS COMPLETED AT THIS TIME, IV SITE FLUSHED. PATIENT BILATERAL LUNGS REMAIN DIMINISHED WITH FAINT EXPIRITORY WHEEZES. WILL CONTINUE TO MONITOR.
--- NOTE | 2020-02-04 23:14 | NUR ---
SECOND UNIT OF PACKED RED BLOOD CELLS STARED AT THIS TIME. PATIENT BILATERAL LUNGS REMAIN DIMINISHED WITH FAINT EXPIRATORY WHEEZES. CALL LIGHT WITHIN REACH. TRANSFUSION REACTION SIGNS AND SYMPTOMS REINFORCED WITH PATIENT AT THIS TIME. WILL CONTINUE TO MONITOR.
[2020-02-05] VITALS (8 sets, daily range): BP systolic 95–135; BP diastolic 38–71
--- NOTE | 2020-02-05 00:16 | NUR ---
PRN TYLENOL GIVEN AT THIS TIME WITH A SIP OF WATER FOR COMPLAINT OF 8/10 PAIN IN BILATERAL LEGS AND ARMS PER PATIENT. A&O X3, CALL LIGHT WITHIN REACH, WILL CONTINUE TO MONITOR.
--- NOTE | 2020-02-05 01:00 | NUR ---
PATIENT STATED THAT PRN TYLENOL HELPED TAKE HER PAIN TO A 5/10 IN HER BILATERAL LEGS AND ARMS. CALL LIGHT WITHIN REACH, WILL CONTINUE TO MONITOR.
--- NOTE | 2020-02-05 01:00 | NUR ---
UNIT NUMBER 2 PACKED RED BLOOD CELLS COMPLETE AT THIS TIME. PATIENT DENIES ANY OF THE TRANSFUSION REACTION SIGNS OR SYMPTOMS AT THIS TIME. BILATERAL LUNGS REMAIN DIMINISHED WITH FAINT EXPIRATORY WHEEZES. CALL LIGHT WITHIN REACH, WILL CONTINUE TO MONITOR.
--- NOTE | 2020-02-05 05:55 | NUR ---
URINE FOR UA REFLEX UC COLLECTED AT THIS TIME AND SENT TO LAB.
[2020-02-05 06:22] LABS: BUN 31 mg/dl (7-24); CHLORIDE 109 mmol/L (98-107); CREATININE 0.91 mg/dL (0.55-1.02); POTASSIUM 4.2 mmol/L (3.5-5.1); SODIUM 143 mmol/L (136-145)
--- NOTE | 2020-02-05 06:29 | NUR ---
24 HOUR CHART CHECK COMPLETE
[2020-02-05 06:30] LABS: BASO % 0.4 % (0.0-1.0); EOS # 0.2 10*3/uL (0.0-0.4); EOS % 2.2 % (1.0-4.0); HEMATOCRIT 26.1 % (37.0-47.0); LYMPH # 1.5 10*3/uL (1.3-4.4); LYMPH % 21.5 % (27.0-41.0); MEAN CELL VOLUME 86.4 fl (81.0-99.0); MEAN CORPUSCULAR HGB 26.5 pg (27.0-31.0); MEAN CORPUSCULAR HGB CONC 30.7 g/dl (33.0-37.0); MEAN PLATELET VOLUME 9.6 fl (9.6-12.3); MONO # 0.6 10*3/uL (0.1-1.0); MONO % 9.2 % (3.0-9.0); NEUT # 4.6 10*3/uL (2.3-7.9); NEUT % 65.8 % (47.0-73.0); NUCLEATED RED BLOOD CELL 0.3 % (0.0-0.0); PLATELET COUNT AUTOMATED 360 10*3/uL (130-400); RED BLOOD COUNT 3.02 10*6/uL (4.10-5.10); RED CELL DISTRI WIDTH 16.4 % (0-14.5); WHITE BLOOD COUNT 6.9 10*3/uL (4.8-10.8)
[2020-02-05 07:01] LABS: BILIRUBIN NEGATIVE (NEGATIVE); CLARITY CLOUDY (CLEAR); COLOR YELLOW (YELLOW); GLUCOSE NEGATIVE (NEGATIVE); KETONE NEGATIVE (NEGATIVE); SPECIFIC GRAVITY 1.015 (1.005-1.030)
[2020-02-05 07:02] LABS: BACTERIA 4+; BLOOD 3+ (NEGATIVE); LEUKO ESTERASE 2+ (NEGATIVE); NITRITE POSITIVE (NEGATIVE); UROBILINOGEN 0.2 E.U./dl (0.2-1.0); WBC TNTC wbc/hpf (0-5)
--- NOTE | 2020-02-05 07:20 | NUR ---
PT BED ALARM GOING OFF, IN ROOM AT PATIENT IS GOING TO THE BEDSIDE COMMODE. PT IS SOB ON EXERTION AND IS NOT WEARING HER OXYGEN. PT IS PLACED BACK IN BED WITH THE ALARM ON AND OXYGEN IS PUT ON. CALL LIGHT WITHIN REACH, WILL CONTINUE TO MONITOR
--- NOTE | 2020-02-05 07:48 | NUR ---
Shift chart check completed.
--- NOTE | 2020-02-05 08:07 | NUR ---
BROTHER BELEN CALLED IN AND STATES HE WILL BE IN AT 0900 TO SIGN CONSENT PAPERS FOR EGD
--- NOTE | 2020-02-05 08:08 | NUR ---
PHYSICAL THERAPY Nursing screen received and chart reviewed. Patient admitted for GI bleed. Recommend skilled PT services if decline in functional mobility presents. Thank you. Latia Bassett,PT,DPT
--- NOTE | 2020-02-05 08:31 | NUR ---
DR BELLO MADE AWARE OF HOME MEDS NEEDING CONTINUED
--- NOTE | 2020-02-05 09:00 | NUR ---
Houseman in to talk to patient. Patient states lives at home with brother and sister in law. There are 12 steps in the home. Physician: katty perez [facility] health services: [facility] Patient's level of ADLs: MINIMAL ASSIST Patient has working utilities: all working DME: walker, wheelchair, nebulizer, no home oxygen Follow-up physician's appointment after d/c: will be made by hospitalist nurse director upon discharge Does patient want to access PORTAL?: no Discharge plan discussed with patient, she lives at home with her brother and sister in law, she currently has [facility] and would like to continue with their services when she is discharge. discussed with her a short term long-term stay if needed for 5 days of rehab which facility she would like to go to . sh stated she would not be going to a short term skilled she would be returning home and resume her home health, case management will follow. CRISTIANE PEARCE
--- NOTE | 2020-02-05 11:05 | NUR ---
PT OFF FLOOR FOR SURGERY
--- NOTE | 2020-02-05 12:29 | NUR ---
Nursing screen received and chart reviewed. Patient admitted from home for a GI bleed. If patient has a decline in ADLs, transfers, or functional mobility, please send OT orders. Thank you. Mandie Guillory, OTR/L
--- NOTE | 2020-02-05 13:19 | NUR ---
PT BACK FROM SURGERY
--- NOTE | 2020-02-05 15:39 | NUR ---
PT SOUNDS AND LOOK SOB AND IS REFUSING TO PUT HER NASAL CANNULA ON. WILL CONTINUE TO MONITOR
--- NOTE | 2020-02-05 15:43 | NUR ---
CALLED DR CHAPA TO LET HIM KNOW THAT THE PATIENT REFUSES TO DRINK THE GOLYTELY. WILL ADD ORDERS DESIRED
--- NOTE | 2020-02-05 15:46 | NUR ---
IN TO PATIENTS ROOM TO LET HER KNOW THAT THE PATIENT REFUSES TO DRINK ANY PREP FOR THE COLONOSCOPY, AND REFUSING THE COLONOSCOPY. CALLED DR CHAPA TO LET HIM KNOW, AND HE STATES "OK THAT THERE IS NOTHING WE CAN DO IF SHE IS REFUSING THE TESTS"
--- NOTE | 2020-02-05 15:56 | NUR ---
CALLED DR BELLO AND TOLD HIM THAT PT IS REFUSING MED PREP FOR COLONOSCOPY AND REFUSING THE COLONOSCOPY TOMORROW
[2020-02-05 16:30] LABS: BASO % 0.5 % (0.0-1.0); EOS # 0.1 10*3/uL (0.0-0.4); EOS % 1.2 % (1.0-4.0); HEMATOCRIT 26.5 % (37.0-47.0); LYMPH # 1.2 10*3/uL (1.3-4.4); LYMPH % 14.1 % (27.0-41.0); MEAN CELL VOLUME 87.7 fl (81.0-99.0); MEAN CORPUSCULAR HGB 26.5 pg (27.0-31.0); MEAN CORPUSCULAR HGB CONC 30.2 g/dl (33.0-37.0); MONO # 0.6 10*3/uL (0.1-1.0); MONO % 7.2 % (3.0-9.0); NEUT # 6.2 10*3/uL (2.3-7.9); NEUT % 76.3 % (47.0-73.0); PLATELET COUNT AUTOMATED 343 10*3/uL (130-400); RED BLOOD COUNT 3.02 10*6/uL (4.10-5.10); RED CELL DISTRI WIDTH 16.4 % (0-14.5); WHITE BLOOD COUNT 8.2 10*3/uL (4.8-10.8)
--- NOTE | 2020-02-05 16:54 | NUR ---
DR CHAPA ON THE FLOOR AND STATES TO MAKE PT REGULAR DIET AND CANCEL HER COLONOSCOPY TOMORROW
--- NOTE | 2020-02-05 20:20 | NUR ---
PATIENT ASSESSMENT COMPLETED AT THIS TIME WITHOUT INCIDENT. PATIENT DENIES ANY CHEST PAIN/PRESSURE, DOES COMPLAIN OF SLIGHT SHORTNESS OF BREATH, NASAL CANNULA OXYGEN REAPPLIED, PATIENT STATED "THAT FEELS BETTER". PATIENT QUESTIONING WHY IV LINE IS STILL ATTACHED AND IF SHE "HAS TO KEEP THAT THING LIKE THAT ALL NIGHT", ADVISED PATIENT THAT THIS RN WOULD CALL THE PHYSICIAN TO CLARIFY ORDERS. SPOKE WITH PATIENT CONCERNING COLONOSCOPY THAT WAS ORDERED FOR TOMORROW AND PATIENT STATED "I CAN'T TOLERATE THAT STUFF ANY OF IT AND I'M NOT DOING IT". A&O X3, CALL LIGHT WITHIN REACH, WILL CONTINUE TO MONITOR.
--- NOTE | 2020-02-05 21:47 | NUR ---
SPOKE WITH DR. CHAPA AT THIS TIME TO CLARIFY IV NORMAL SALINE ORDER, RELAYED TO HIM PATIENT STATEMENT CONCERNING HER DISLIKE AND REQUEST TO HAVE THE IV FLUIDS STOPPED. ORDERS RECEIVED, SEE EMAR. ALSO RELAYED THIS RN ATTEMPT TO EDUCATED PATIENT ON IMPORTANCE OF COLONOSCOPY IN RELATION TO ANEMIA AND BLOOD LOSS AND HER SUBSEQUENT REFUSAL. HE WILL SEE PATIENT TOMORROW AND SPEAK WITH HER AGAIN.
[2020-02-06] VITALS: BP 122/51
--- NOTE | 2020-02-06 03:51 | NUR ---
24 HOUR CHART CHECK COMPLETE
--- NOTE | 2020-02-06 05:40 | NUR ---
IV started left forearm with #22 angiocath after 1 attempts. The IV site was prepped with Chloraprep. Heparin lock attached. Sterile dressing applied. Patient tolerated precedure well. Procedure performed according to [facility] policy & procedure. KANDACE QUINTANA
[2020-02-06 06:57] LABS: BASO % 0.4 % (0.0-1.0); EOS # 0.1 10*3/uL (0.0-0.4); EOS % 1.8 % (1.0-4.0); HEMATOCRIT 28.3 % (37.0-47.0); LYMPH # 0.9 10*3/uL (1.3-4.4); LYMPH % 11.8 % (27.0-41.0); MEAN CELL VOLUME 86.8 fl (81.0-99.0); MEAN CORPUSCULAR HGB 26.1 pg (27.0-31.0); MEAN PLATELET VOLUME 9.3 fl (9.6-12.3); MONO # 0.7 10*3/uL (0.1-1.0); MONO % 8.4 % (3.0-9.0); NEUT % 77.2 % (47.0-73.0); PLATELET COUNT AUTOMATED 368 10*3/uL (130-400); RED BLOOD COUNT 3.26 10*6/uL (4.10-5.10); RED CELL DISTRI WIDTH 16.6 % (0-14.5); WHITE BLOOD COUNT 7.8 10*3/uL (4.8-10.8)
[2020-02-06 07:25] LABS: CHLORIDE 109 mmol/L (98-107); CREATININE 0.82 mg/dL (0.55-1.02); SODIUM 141 mmol/L (136-145)
[2020-02-06 07:27] LABS: BUN 15 mg/dl (7-24)
--- NOTE | 2020-02-06 07:46 | NUR ---
DR ULLOA IN TO SEE PATIENT
--- NOTE | 2020-02-06 07:48 | NUR ---
IN PT ROOM AND DISCUSSED WITH DR ULLOA THAT SHE IS REFUSING PREP FOR COLONOSCOPY AND REFUSING TO HAVE THE TEST DONE. PT STATES "I HAVE NO BURNING WHEN I PEE, I AM READY TO GO HOME". CALL LIGHT NEAR PATIENT, WILL CONTINUE TO MONITOR
[2020-02-06 08:00] VITALS: BP 110/50
--- NOTE | 2020-02-06 08:41 | NUR ---
BROTHER TARI CALLED TO SEE HOW PATIENT IS DOING.
--- NOTE | 2020-02-06 09:00 | NUR ---
case management visits with patient, again discussed with her a short term intermediate for rehab prior to returning home, she became upset and stated she would never return to a nursing facility, she stated she would be returning home, she currently has [facility] and will resume when patient is discharged, case management will follow
--- NOTE | 2020-02-06 10:36 | NUR ---
MATERIAL ANALYST RECEIVED A CALL FROM LAWRENCE SAINI, PATIENTS BROTHER. PASSWORD VERFIED. PATIENTS BROTHER STATED THAT HE WANTED THE PATIENT PLACED IN A RESIDENTIAL. MATERIAL ANALYST EXPLAINED TO THE BROTHER THE PATIENT IS OF SOUND MIND AND CANNOT BE FORCED TO A NH AGAINST HER WILL. PATIENTS BROTHER STATED HE HAS AN ALTERNATIVE WAY TO GET HER THERE. MATERIAL ANALYST ASKED WHAT THE ALTERNATIVE WAY IS, PATIENTS BROTHER STATED THAT HE WOULD GET THE [facility] PAPERS AND PLACE HER. MATERIAL ANALYST EXPLAINED UNLESS THE PATIENT IS FOUND INCOMPETENT, THE PAPERS HOLD NO VALUE AND THAT THE PATIENT STILL CANNOT BE FORCED AGAINST HER WILL. PATIENTS BROTHER STATED TO JUST HAVE THE PATIENT RETURN HOME.
--- NOTE | 2020-02-06 10:43 | NUR ---
DR FERMIN IN TO SEE PATIENT
[2020-02-06] MEDS ORDERED: PROTONIX TR40 M1 PO (10:49)
[2020-02-06] MEDS ORDERED: CEFUROXIME AXE500 MG PO (10:49)
[2020-02-06] MEDS ORDERED: Carafate1 GM PO (10:49)
--- NOTE | 2020-02-06 11:14 | NUR ---
IN PT ROOM TO GO OVER DISCHARGE PLANS. PT IV IS TAKEN OUT AT THIS TIME. PT IS AWARE THAT MEDICATIONS ARE SENT TO HER PHARMACY. NO FURTHER QUESTIONS AT THIS TIME, WILL WAIT UNTIL RIDE GETS HERE
--- NOTE | 2020-02-06 11:30 | NUR ---
PT LEAVING THE FLOOR AT THIS TIME WITH ALL OF HER BELONGINGS
--- NOTE | 2020-02-06 12:22 | NUR ---
case management notified [facility] patient was discharged to home today
== END 2020-02-06 11:30 | disposition home health service (06) | DRG 378 ==
LOC: ED 18:01 → EDHOLD 19:58 → 4E 19:58
PROVIDERS: Internal Medicine; Physician Assistant; ADMIT Emergency Medicine
PROC: 30233N1 Transfusion of Nonautologous Red Blood Cells into Peripheral Vein, Percutaneous Approach (ICD-10-PCS; 2020-02-04)
PROC: 0DB68ZX Excision of Stomach, Via Natural or Artificial Opening Endoscopic, Diagnostic (ICD-10-PCS; principal; 2020-02-05)
DX: K29.01 Acute gastritis with bleeding (principal); N39.0 Urinary tract infection, site not specified; E44.0 Moderate protein-calorie malnutrition; I50.32 Chronic diastolic (congestive) heart failure; K26.0 Acute duodenal ulcer with hemorrhage; D50.0 Iron deficiency anemia secondary to blood loss (chronic); E83.41 Hypermagnesemia; J44.9 Chronic obstructive pulmonary disease, unspecified; F17.210 Nicotine dependence, cigarettes, uncomplicated; R73.9 Hyperglycemia, unspecified; E78.5 Hyperlipidemia, unspecified; F41.1 Generalized anxiety disorder; G20 Parkinson's disease; F32.9 Major depressive disorder, single episode, unspecified; E03.9 Hypothyroidism, unspecified; M19.90 Unspecified osteoarthritis, unspecified site; M25.552 Pain in left hip; G89.29 Other chronic pain; Z66 Do not resuscitate; Z51.5 Encounter for palliative care; M79.672 Pain in left foot; K21.9 Gastro-esophageal reflux disease without esophagitis; K44.9 Diaphragmatic hernia without obstruction or gangrene; I11.0 Hypertensive heart disease with heart failure; Z80.1 Family history of malignant neoplasm of trachea, bronchus and lung; I25.2 Old myocardial infarction; Z82.49 Family history of ischemic heart disease and other diseases of the circulatory system; Z86.73 Personal history of transient ischemic attack (TIA), and cerebral infarction without residual deficits; Z86.718 Personal history of other venous thrombosis and embolism; Z79.899 Other long term (current) drug therapy; Z79.82 Long term (current) use of aspirin; Z68.26 Body mass index [BMI] 26.0-26.9, adult

== ENCOUNTER 2020-02-15 15:33 | Emergency (ER) | payer MEDICARE ==
[~2020-02-15] VITALS: Ht 152.4 cm; Wt 59.9 kg
[~2020-02-15 15:33] MED LIST changes: +CEFUROXIME AXE500 MG PO; +Carafate1 GM PO; +POTASSIUM CHLO10 ME4 PO; +PROTONIX TR40 M1 PO
[2020-02-15 16:15] LABS: MEAN CELL VOLUME 84.2 fl (81.0-99.0); MEAN CORPUSCULAR HGB 24.4 pg (27.0-31.0); MEAN CORPUSCULAR HGB CONC 28.9 g/dl (33.0-37.0); MEAN PLATELET VOLUME 9.1 fl (9.6-12.3); PLATELET COUNT AUTOMATED 432 10*3/uL (130-400); RED BLOOD COUNT 2.34 10*6/uL (4.10-5.10); RED CELL DISTRI WIDTH 17.9 % (0-14.5); WHITE BLOOD COUNT 11.3 10*3/uL (4.8-10.8)
[2020-02-15 16:19] LABS: HEMATOCRIT 19.7 % (37.0-47.0)
[2020-02-15 16:24] LABS: ACT PARTIAL THROMBO TIME 22.5 SECONDS (20.0-32.1); INTERNATIONAL NORM RATIO 1.1 (2.0-3.5)
[2020-02-15 16:30] LABS: ALBUMIN 2.7 gm/dl (3.1-4.5); ALKALINE PHOSPHATASE 88 U/L (45-117); BUN 30 mg/dl (7-24); CHLORIDE 99 mmol/L (98-107); CREATININE 1.14 mg/dL (0.55-1.02); POTASSIUM 3.6 mmol/L (3.5-5.1); SGOT/AST 30 IU/L (3-35); SGPT/ALT 24 U/L (12-78); SODIUM 137 mmol/L (136-145); TOTAL PROTEIN 6.3 gm/dL (6.4-8.2)
[2020-02-15 16:31] LABS: TOTAL CELLS COUNTED 100 #CELLS; TROPONIN I < 0.015 ng/ml (<0.045)
[2020-02-15 16:32] LABS: OVALOCYTES FEW; PLATELET SUFFICIENCY HIGH (NORMAL); POLYCHROMASIA SLIGHT; SCHISTOCYTES FEW
[2020-02-15 17:31] VITALS: BP 117/60
[2020-02-15 17:49] VITALS: BP 126/64
[2020-02-15 18:13] VITALS: BP 122/65
[2020-02-15 18:30] VITALS: BP 145/67
[2020-02-15 19:30] VITALS: BP 136/73
[2020-02-15 19:43] VITALS: BP 120/67
== END 2020-02-15 20:55 | disposition short-term general hospital (02) ==
LOC: ED 15:33
PROVIDERS: Emergency Medicine
DX: K92.2 Gastrointestinal hemorrhage, unspecified (principal); F17.200 Nicotine dependence, unspecified, uncomplicated; G89.29 Other chronic pain; J44.9 Chronic obstructive pulmonary disease, unspecified; I10 Essential (primary) hypertension; K21.9 Gastro-esophageal reflux disease without esophagitis; E78.5 Hyperlipidemia, unspecified; Z86.711 Personal history of pulmonary embolism; Z86.718 Personal history of other venous thrombosis and embolism; Z98.890 Other specified postprocedural states; Z86.73 Personal history of transient ischemic attack (TIA), and cerebral infarction without residual deficits; Z79.82 Long term (current) use of aspirin; Z79.899 Other long term (current) drug therapy; Z99.81 Dependence on supplemental oxygen; Z79.01 Long term (current) use of anticoagulants

== ENCOUNTER 2020-03-11 09:43 | Inpatient (IN) | payer MEDICARE ==
[~2020-03-11] VITALS: Ht 162.5 cm; Wt 63.5 kg
[2020-03-11] VITALS (16 sets, daily range): BP systolic 94–122; BP diastolic 28–77
[2020-03-11 10:29] LABS: MEAN CELL VOLUME 80.6 fl (81.0-99.0); MEAN CORPUSCULAR HGB 21.9 pg (27.0-31.0); MEAN CORPUSCULAR HGB CONC 27.2 g/dl (33.0-37.0); MEAN PLATELET VOLUME 9.1 fl (9.6-12.3); PLATELET COUNT AUTOMATED 332 10*3/uL (130-400); RED BLOOD COUNT 2.37 10*6/uL (4.10-5.10); WHITE BLOOD COUNT 5.2 10*3/uL (4.8-10.8)
[2020-03-11 10:34] LABS: HEMATOCRIT 19.1 % (37.0-47.0)
[2020-03-11 10:38] LABS: ACT PARTIAL THROMBO TIME 22.3 SECONDS (20.0-32.1)
[2020-03-11 10:42] LABS: ALBUMIN 2.9 gm/dl (3.1-4.5); ALKALINE PHOSPHATASE 70 U/L (45-117); BUN 17 mg/dl (7-24); CHLORIDE 110 mmol/L (98-107); CREATININE 1.01 mg/dL (0.55-1.02); LIPASE 114 U/L (73-393); POTASSIUM 4.1 mmol/L (3.5-5.1); SGOT/AST 11 IU/L (3-35); SGPT/ALT 10 U/L (12-78); SODIUM 141 mmol/L (136-145); TOTAL PROTEIN 6.1 gm/dL (6.4-8.2)
--- NOTE | 2020-03-11 10:44 | NUR ---
LA 2.3, NOTIFIED NURSE AND
[2020-03-11 10:45] LABS: TROPONIN I < 0.015 ng/ml (<0.045)
--- NOTE | 2020-03-11 10:45 | NUR ---
PT RESTING QUIETLY, PT VOICES NO COMPLAINTS AT THIS TIME, CALL LIGHT IN REACH WILL CONTINUE TO MONITOR.
[2020-03-11 10:52] LABS: BASOPHILS 2 % (0-1); OVALOCYTES FEW; PLATELET SUFFICIENCY NORMAL (NORMAL); POLYCHROMASIA SLIGHT; TOTAL CELLS COUNTED 100 #CELLS
[2020-03-11 10:53] LABS: MICROCYTOSIS SLIGHT; ROULEAUX SLIGHT; SCHISTOCYTES FEW; TARGET CELLS FEW
--- NOTE | 2020-03-11 12:45 | NUR ---
A 74yr old female, admitted to [facility], under the services of KRISTEN Cavanaugh DO with a diagnosis of GI bleed, Generalized weakness, and inability to walk. Chief complaint is weakness.. Patient arrived via stretcher from ER. Monitor applied. Initial assessment completed. Vital signs taken and recorded. See assessment for past medical history, medications and allergies. Patient and/or family oriented to unit. [facility] visitation policy reviewed. Clothing/patient valuable form completed. SUMAYA MEIER L
[2020-03-11] MEDS ORDERED: LASIX20 MG PO (14:01)
[2020-03-11] MEDS ORDERED: [UNRECOGNIZED DRUG - OTHER] PO (14:04)
[2020-03-11] MEDS ORDERED: ANORO ELLIPTA1 EACH INH (14:04)
[2020-03-11] MEDS ORDERED: XARE20MG PO (14:05)
[2020-03-11 15:35] LABS: BILIRUBIN NEGATIVE (NEGATIVE); BLOOD NEGATIVE (NEGATIVE); CLARITY CLEAR (CLEAR); COLOR YELLOW (YELLOW); GLUCOSE NEGATIVE (NEGATIVE); KETONE NEGATIVE (NEGATIVE); PH 6.5 (5.0-9.0)
[2020-03-11 15:38] LABS: LEUKO ESTERASE TRACE (NEGATIVE); NITRITE NEGATIVE (NEGATIVE); UROBILINOGEN 0.2 E.U./dl (0.2-1.0)
[2020-03-11 15:48] LABS: BACTERIA TRACE
[2020-03-12] VITALS (10 sets, daily range): BP systolic 95–146; BP diastolic 48–83
[2020-03-12 05:21] LABS: ALBUMIN 2.9 gm/dl (3.1-4.5); ALKALINE PHOSPHATASE 77 U/L (45-117); BUN 12 mg/dl (7-24); CHLORIDE 109 mmol/L (98-107); CREATININE 0.89 mg/dL (0.55-1.02); POTASSIUM 3.7 mmol/L (3.5-5.1); SGOT/AST 13 IU/L (3-35); SGPT/ALT 12 U/L (12-78); SODIUM 142 mmol/L (136-145); TOTAL PROTEIN 6.3 gm/dL (6.4-8.2)
[2020-03-12 06:27] LABS: BASO % 0.5 % (0.0-1.0); EOS # 0.2 10*3/uL (0.0-0.4); EOS % 2.7 % (1.0-4.0); LYMPH # 0.8 10*3/uL (1.3-4.4); MEAN CORPUSCULAR HGB 23.7 pg (27.0-31.0); MEAN CORPUSCULAR HGB CONC 29.6 g/dl (33.0-37.0); MEAN PLATELET VOLUME 9.7 fl (9.6-12.3); MONO # 0.5 10*3/uL (0.1-1.0); MONO % 7.6 % (3.0-9.0); NEUT # 4.8 10*3/uL (2.3-7.9); NEUT % 75.7 % (47.0-73.0); PLATELET COUNT AUTOMATED 339 10*3/uL (130-400); RED CELL DISTRI WIDTH 17.3 % (0-14.5); WHITE BLOOD COUNT 6.3 10*3/uL (4.8-10.8)
--- NOTE | 2020-03-12 07:51 | NUR ---
PHYSICAL THERAPY Screen received, pt admitted for inability to ambulate with anemia and GI hemmoragh. Pleae consult PT if pts functional status declines from baseline and when medically appropriate. Thank you. Sagar Machado SPT Ivis Knight PT
--- NOTE | 2020-03-12 11:10 | NUR ---
TAKEN TO OR VIA BED FOR EGD
--- NOTE | 2020-03-12 12:22 | NUR ---
LANG FROM [facility] CALLED AND UPDATED ON PATIENT'S CONDITION. IF NEEDED FOR DISCHARGE SHE CAN BE REACHED AT [phone]
--- NOTE | 2020-03-12 14:48 | NUR ---
Vegetable Scullion in to talk to patient. Patient states lives at home with family. There are 12 steps in the home. Physician: katty perez [facility]: [facility] Patient's level of ADLs: MODERATE ASSIST Patient has working utilities: all working DME: walker, wheelchair, nebulizer Follow-up physician's appointment after d/c: Does patient want to access PORTAL?: no Discharge plan discussed with patient, she lives at home with family, she requires assistance with adls and ambulation, she has a walker and wheelchair, she has a nebulizer, no home oxygen, she states she will return home when discharged and resume [facility]. CRISTIANE PEARCE
--- NOTE | 2020-03-12 16:03 | NUR ---
Shift chart check completed.24 HR chart check completed.
--- NOTE | 2020-03-12 19:39 | NUR ---
CHART CHECK COMPLETE.
--- NOTE | 2020-03-12 21:04 | NUR ---
PT TRANSFERRED WITH BELONGINGS TO [facility]- VIA WHEELCHAIR. REPORT GIVEN TO SAHRDA.
--- NOTE | 2020-03-12 21:15 | NUR ---
ARRIVES TO ROOM, ALERT AND ORIENTED. RESPIRATIONS EASY. VSS. LUNGS DIMINISHED WITH COARSE EXP WHEEZES. PULSE OX 96% 2L. TRACE BLE EDEMA. CALL LIGHT WITHIN REACH. NO VOICED COMPLAINTS
--- NOTE | 2020-03-12 23:11 | NUR ---
24 HR chart check completed.
[2020-03-13] VITALS: BP 107/50
--- NOTE | 2020-03-13 | NUR ---
SLEEPING. NO DISTRESS NOTED. RESPIRATIONS EASY. VSS. CALL LIGHT WITHIN REACH.
--- NOTE | 2020-03-13 06:00 | NUR ---
SLEPT THROUGHOUT NIGHT WITH NO DISTRESS NOTED. RESPIRATIONS EASY. O2 PRESENT AT BEDSIDE, PATIENT TAKES ON AND OFF. CALL LIGHT WITHIN REACH. NO VOICED COMPLAINTS THIS SHIFT
[2020-03-13 07:49] LABS: BASO % 0.4 % (0.0-1.0); EOS # 0.2 10*3/uL (0.0-0.4); EOS % 2.1 % (1.0-4.0); HEMATOCRIT 27.6 % (37.0-47.0); LYMPH # 1.3 10*3/uL (1.3-4.4); LYMPH % 18.6 % (27.0-41.0); MEAN CELL VOLUME 81.9 fl (81.0-99.0); MEAN CORPUSCULAR HGB CONC 29.3 g/dl (33.0-37.0); MEAN PLATELET VOLUME 9.3 fl (9.6-12.3); MONO # 0.6 10*3/uL (0.1-1.0); MONO % 8.2 % (3.0-9.0); NEUT # 5.1 10*3/uL (2.3-7.9); NEUT % 70.3 % (47.0-73.0); PLATELET COUNT AUTOMATED 280 10*3/uL (130-400); RED BLOOD COUNT 3.37 10*6/uL (4.10-5.10); RED CELL DISTRI WIDTH 18.1 % (0-14.5); WHITE BLOOD COUNT 7.2 10*3/uL (4.8-10.8)
[2020-03-13 08:00] VITALS: BP 120/42
[2020-03-13 08:00] LABS: BUN 13 mg/dl (7-24); CHLORIDE 108 mmol/L (98-107); CREATININE 0.82 mg/dL (0.55-1.02); POTASSIUM 4.2 mmol/L (3.5-5.1); SODIUM 140 mmol/L (136-145)
--- NOTE | 2020-03-13 09:00 | NUR ---
Acquisitions Logistics Analyst in to talk to patient. Patient states lives at home with brother and sister in law. There are 12 steps in the home. Physician: katty perez [facility] Home health services: [facility] Patient's level of ADLs: MINIMAL ASSIST Patient has working utilities: all working DME: walker, wheelchair, home oxygen, portable tanks, nebulizer Follow-up physician's appointment after d/c: will be made by hospitalist nurse director upon discharge Does patient want to access PORTAL?: no Discharge plan discussed with patient, she states she lives at home with brother and sister in law, she uses a walker for ambulation, she states she currently has [facility]. discussed with her a discharge plan and she stated she would return home when discharged and continue with [facility], case management will follow. CRISTIANE PEARCE
[2020-03-13] MEDS ORDERED: Carafate1 GM PO (11:18)
--- NOTE | 2020-03-13 11:59 | NUR ---
PT ASSESSED FOR HOME O2. PRE HR 88 SPO2 AT REST WAS 97% RA BP 120/42 POST AMBULATION HR 100 SPO2 94% RA BP 120/58. PT DOES NOT QUALIFY FOR HOME 02
[2020-03-13 12:00] VITALS: BP 102/40
--- NOTE | 2020-03-13 13:54 | NUR ---
Discharge instructions reviewed with patient/family. Patient receptive and verbalizes understanding. Follow-up care arranged. Written instructions given to patient/family. JANICE STINSON
--- NOTE | 2020-03-13 14:02 | NUR ---
PT TAKEN DOWN BY WHEELCHAIR TO MEET SISTER IN LAW AT FRONT DOOR.
--- NOTE | 2020-03-13 15:39 | NUR ---
case management notified [facility] that patient is discharged to home today
== END 2020-03-13 14:23 | disposition home health service (06) | DRG 378 ==
LOC: ED 09:43 → ICCU 11:49 → EDHOLD 11:49 → ICCU 11:56 → 4E 03-12 21:17
PROVIDERS: Emergency Medicine; Hospitalist; ADMIT Student in an Organized Health Care Education/Training Program
PROC: 30233N1 Transfusion of Nonautologous Red Blood Cells into Peripheral Vein, Percutaneous Approach (ICD-10-PCS; principal; 2020-03-11)
PROC: 0DB68ZX Excision of Stomach, Via Natural or Artificial Opening Endoscopic, Diagnostic (ICD-10-PCS; 2020-03-12)
DX: K25.0 Acute gastric ulcer with hemorrhage (principal); D62 Acute posthemorrhagic anemia; E87.2 Acidosis; E44.0 Moderate protein-calorie malnutrition; I50.32 Chronic diastolic (congestive) heart failure; E87.8 Other disorders of electrolyte and fluid balance, not elsewhere classified; E78.5 Hyperlipidemia, unspecified; F41.1 Generalized anxiety disorder; F32.9 Major depressive disorder, single episode, unspecified; K21.9 Gastro-esophageal reflux disease without esophagitis; G20 Parkinson's disease; M79.672 Pain in left foot; G89.29 Other chronic pain; J41.0 Simple chronic bronchitis; F17.210 Nicotine dependence, cigarettes, uncomplicated; I11.0 Hypertensive heart disease with heart failure; E83.41 Hypermagnesemia; Z66 Do not resuscitate; Z51.5 Encounter for palliative care; R79.89 Other specified abnormal findings of blood chemistry; Z86.73 Personal history of transient ischemic attack (TIA), and cerebral infarction without residual deficits; Z86.718 Personal history of other venous thrombosis and embolism; Z86.711 Personal history of pulmonary embolism; Z79.899 Other long term (current) drug therapy; Z79.01 Long term (current) use of anticoagulants; Z79.82 Long term (current) use of aspirin; Z80.1 Family history of malignant neoplasm of trachea, bronchus and lung; Z68.24 Body mass index [BMI] 24.0-24.9, adult

== ENCOUNTER 2020-03-22 13:49 | Inpatient (IN) | payer MEDICARE ==
[~2020-03-22] VITALS: Ht 165.1 cm; Wt 60.6 kg
[2020-03-22] VITALS (19 sets, daily range): BP systolic 106–136; BP diastolic 34–78
[~2020-03-22 13:49] MED LIST changes: +ANORO ELLIPTA1 EACH INH; +LASIX20 MG PO; +PEPTO BISM525 MG/12 PO; +XARE20MG PO
--- NOTE | 2020-03-22 13:51 | NUR ---
TO ROOM 14 VIA EMS IN STABLE CONDITION
--- NOTE | 2020-03-22 13:59 | NUR ---
PATIENT IS IN BED, HOB ELEVATED FRO COMFORT, SHE IS TACHYPNIC, 2LNC PROVIDED FOR COMFORT PER PATIENT REQUEST. SHE HAS A CHRONIC SMOKERS COUGH PER HER REPORT. SHE DENIES CHEST PAIN. SHE HAS PAIN IN HER LEFT LOWER LEG. CALL LIGHT IN REACH. FOOD SAFETY DIRECTOR APPLIED. SHE HAS NO NEEDS, WAITING FOR MD CADET
--- NOTE | 2020-03-22 14:44 | NUR ---
DR. HERNANDEZ AT BEDSIDE, PATIENT IS POSITIVE FOR OCCULT BLOOD. SHE WILL BE ADMITTED. PATIENT IS AGREEABLE TO THIS.
--- NOTE | 2020-03-22 16:00 | NUR ---
KIM FAXED, SPOKE WITH ANGELA RN, DEVIN SHELL TRIM TOOL SETTER FLOAT TRANSPORTED PT TO 522 IN STABLE CONDITION. BLOOD BANK CALLLED DURING TRANSPORT.
--- NOTE | 2020-03-22 16:31 | NUR ---
Med rec updated with family at number provided. Spoke with significant other of Ron Rock at [phone].
--- NOTE | 2020-03-22 17:09 | NUR ---
PT SENT TO CHEST XRAY
--- NOTE | 2020-03-22 17:44 | NUR ---
PT REFUSED COVID TESTING. PT ORDERED PRBC, HAVE NO LABELS FOR PATIENT TO GO GET BLOOD. WILL GET BLOOD STARTED SOON POSSIBLE
--- NOTE | 2020-03-22 17:56 | NUR ---
DR. SAMSON NOTIFIED THAT LIZZETH REFUSED COVID TESTING
--- NOTE | 2020-03-22 18:10 | NUR ---
PT UNDERSTANDS BLOOD TRANSFUSION, PT STATES SHE HAS HAD BLOOD TRANSFUSIONS IN THE PAST. PT UNDERSTANDS S/S TO REPORT TO NURSE/STAFF. PT WITHOUT QUESTIONS AT THIS TIME. FIRST UNIT PRBC STARTED AT THIS TIME.
--- NOTE | 2020-03-22 19:26 | NUR ---
REPORT GIVEN TO ONCOMING SHIFT, AWARE BLOOD FIRST UNIT PRBC UP AND RUNNING. AWARE NEED 2ND PRBC
[2020-03-23] VITALS: BP 125/59
[2020-03-23 06:59] LABS: BASO # 0.1 10*3/uL (0.0-0.1); BASO % 0.8 % (0.0-1.0); EOS # 0.2 10*3/uL (0.0-0.4); EOS % 2.9 % (1.0-4.0); HEMATOCRIT 30.1 % (37.0-47.0); LYMPH # 1.2 10*3/uL (1.3-4.4); LYMPH % 16.4 % (27.0-41.0); MEAN CELL VOLUME 83.8 fl (81.0-99.0); MEAN CORPUSCULAR HGB 25.1 pg (27.0-31.0); MEAN CORPUSCULAR HGB CONC 29.9 g/dl (33.0-37.0); MEAN PLATELET VOLUME 9.8 fl (9.6-12.3); MONO # 0.5 10*3/uL (0.1-1.0); MONO % 6.7 % (3.0-9.0); NEUT # 5.3 10*3/uL (2.3-7.9); NEUT % 72.8 % (47.0-73.0); PLATELET COUNT AUTOMATED 259 10*3/uL (130-400); RED BLOOD COUNT 3.59 10*6/uL (4.10-5.10); RED CELL DISTRI WIDTH 17.7 % (0-14.5); WHITE BLOOD COUNT 7.3 10*3/uL (4.8-10.8)
[2020-03-23 07:26] LABS: BUN 15 mg/dl (7-24); CHLORIDE 107 mmol/L (98-107); CREATININE 0.78 mg/dL (0.55-1.02); POTASSIUM 3.4 mmol/L (3.5-5.1); SODIUM 143 mmol/L (136-145)
[2020-03-23 08:17] VITALS: BP 110/52
--- NOTE | 2020-03-23 10:09 | NUR ---
PT BROTHER CALLS AND STATES THAT HE WOULD LIKE TO SPEAK TO CASE MANAGEMENT REGARDING PLAN OF CARE FOR PT. PT BROTHER IS BELEN WALKER; PHONE NUMBER IS: [phone]. WILL PASS INFORMATION ALONG TO CASE MANAGEMENT AND PHYSICIANS.
--- NOTE | 2020-03-23 10:13 | NUR ---
PHYSICIANS AWARE OF PATIENT'S BROTHER CALL FOR PLAN OF CARE.
[2020-03-23 12:00] VITALS: BP 106/60
--- NOTE | 2020-03-23 12:00 | NUR ---
PT SITTING UP IN BED. ALERT AND PLEASANT. RESPRIATIONS UNLABORED ON 2L NC. PT REMINDED OF IMPORTANCE ON KEEPING NC IN NOSE. PT DENIES NEEDING ANYTHING AT THIS TIME. SAFETY MEASURES IN PLACE. CALL LIGHT IN REACH.
--- NOTE | 2020-03-23 15:27 | NUR ---
Spoke with Pt. Brother Paveljaya Rock at [facility] Concerning Discharge Plans. Pt. feels that she can go home but Brother reports that Pt. cannot do anything for herself. He said she has fallen numerous times and is unsafe. He states that [facility] Pt. PCP has recommended 24 hour care to do Pt. being unsafe at home. Pt. is unable to manage the stairs in her home even with assistance and when she needs to go up the stairs will yell for help. Pt. is Non-Compliant with Medications, Poor Appetite. Is unable to Cook for herself or obtain own meals. Pt. has episodes of Incontinence and is unable to clean herself after soiling. Family that Pt. lives with are unwell physically and not able to provide the hands on care that is required. Pt. cannot manage her own medications. Pt. Brother states that Pt. is unable to return home. It is his Home and Pt. does not contribute Financially to the Bills. Family has requested a competency evaluation. They feel that pt. is treated too quickly and sent home and she fails each time due to non-compliance and not eating and taking her medications. Pt. Brother crying and voiced concern of repeated return home and back to hospital. Spoke with Nurse Espinal on the 5th Floor and notified her that family has requested Competency Evaluation. Kylie is going to notify Physician. Pt. will require PT/OT consult and Covid Swab Prior to Referral to Nursing Facility. Pt. States [facility] or [place] As preference.
--- NOTE | 2020-03-23 15:38 | NUR ---
Burr Machine Operator in to talk to patient. Pt. Somewhat Confused and Unable to Provide Burr Machine Operator with accurate concrete Information. Patient lives with her Brother in his house due to Signing Out AMA from [facility]. There are Morethan 10 steps in the home. Physician: Mir Awan Pharmacy: [facility] Home health services: None at this time Patient's level of ADLs: Reported by Family that Pt. is Complete Care, She needs alot of Assistance at Home and they are unable to provide. Patient has working utilities: YES DME: None Follow-up physician's appointment after d/c: Hospitalist office Does patient want to access PORTAL?: No Discharge plan : Pt. will require SNF with possible LTC placement due to inability to care for herself at home. Pt. Lives with family who state that Pt. is struggling at home, has had numerous falls at home, non-compliant with medications. Not maitaining an adequate diet. Unable to obtain own meals. Unsteady on her Feet, Generally very weak, unable to climb stairs without assistance. [facility]. Pt. is at [facility]. BHAVYA BROWN LPN
[2020-03-23 16:00] VITALS: BP 104/48
--- NOTE | 2020-03-23 16:46 | NUR ---
PT GIVEN EVENING MEDICATIONS AT THIS TIME. PT SITTING UP IN BED, EATING DINNER. PT DENIES NEEDING ANYTHING. ASSESSMENT COMPLETE. POX/RESPS WNL. NC IN TACT AT 2L SUPPLEMENTAL OXYGYEN. BED ALARM IN PLACE. HOB ELEVATED. CALL LIGHT IN REACH.
[2020-03-23 20:00] VITALS: BP 113/49
--- NOTE | 2020-03-23 20:15 | NUR ---
PATIENT ASSESSMENT COMPLETED AT THIS TIME WITHOUT INCIDENT. PATIENT DENIES ANY CHEST PAIN, SHORTNESS OF BREATH OR OTHER DISTRESS AT THIS TIME. PATIENT EDUCATED ON IMPORTANCE OF LEAVING NASAL CANNULA IN AND USING THE OXYGEN HER SPO2 LEVELS DECREASE WHEN SHE IS UP TO THE BEDSIDE COMMODE AND WHEN SHE IS SLEEPING. A&O X2-3 WITH SOME REORIENTATION TO TIME AND DATE. CALL LIGHT WITHIN REACH, REMINDED PATIENT TO CALL FOR ASSISTANCE WHEN GETTING UP SHE IS UNSTEADY AT TIMES. WILL CONTINUE TO MONITOR.
--- NOTE | 2020-03-23 20:40 | NUR ---
PATIENT REFUSED TO ALLOW AIDES TO ASSIST HER WITH A BATH AT THIS TIME, STATED "I'M NOT READY FOR ONE RIGHT NOW". PATIENT REMAINS IN CLOTHES THAT SHE WAS ADMITTED IN AND WILL NOT CHANGE INTO A GOWN AND SCRUB PANTS.
--- NOTE | 2020-03-23 22:58 | NUR ---
24 HOUR CHART CHECK COMPLETE
[2020-03-24] VITALS: BP 121/56
--- NOTE | 2020-03-24 00:20 | NUR ---
PATIENT RESTING IN BED IN A POSITION OF COMFORT AT THIS TIME WITH EYES CLOSED. RESPIRATIONS EASY AND NON-LABORED. NO SIGNS OR SYMPTOMS OF PAIN OR DISTRESS NOTED AT THIS TIME. CALL LIGHT WITHIN REACH, WILL CONTINUE TO MONITOR.
--- NOTE | 2020-03-24 04:04 | NUR ---
PATIENT REMAINS RESTING IN BED, NO DISTRESS NOTED AT THIS TIME, RESPIRATIONS REMAIN EASY AND NON-LABORED, CALL LIGHT WITHIN REACH, WILL CONTINUE TO MONITOR.
--- NOTE | 2020-03-24 04:53 | NUR ---
PATIENT REFUSED TO ALLOW AIDES TO BATHE HER AT THIS TIME.
[2020-03-24 06:06] LABS: HEMATOCRIT 25.5 % (37.0-47.0); MEAN CELL VOLUME 82.8 fl (81.0-99.0); MEAN CORPUSCULAR HGB CONC 30.2 g/dl (33.0-37.0); PLATELET COUNT AUTOMATED 252 10*3/uL (130-400); RED BLOOD COUNT 3.08 10*6/uL (4.10-5.10); RED CELL DISTRI WIDTH 18.6 % (0-14.5); WHITE BLOOD COUNT 5.1 10*3/uL (4.8-10.8)
[2020-03-24 06:41] LABS: TOTAL CELLS COUNTED 100 #CELLS
[2020-03-24 06:42] LABS: OVALOCYTES FEW; PLATELET SUFFICIENCY NORMAL (NORMAL); POLYCHROMASIA SLIGHT; SCHISTOCYTES FEW
[2020-03-24 06:44] LABS: BUN 17 mg/dl (7-24); CHLORIDE 107 mmol/L (98-107); CREATININE 0.83 mg/dL (0.55-1.02); POTASSIUM 3.6 mmol/L (3.5-5.1); SODIUM 142 mmol/L (136-145)
[2020-03-24 08:00] VITALS: BP 100/45
--- NOTE | 2020-03-24 10:08 | NUR ---
[facility] NOTIFIED OF NEW CONSULT
[2020-03-24 12:00] VITALS: BP 128/48
[2020-03-24 16:00] VITALS: BP 121/44
--- NOTE | 2020-03-24 17:14 | NUR ---
PT WISHES TO SIGN OUT AGAINST MEDICAL ADVICE. DR. MAURICE INFORMED AND PER HIM HE ALSO INFORMED DR. FERMIN. PATIENTS BROTHER TO TRANSPORT HOME. [place] REMOVED. PT TO CALL OUT WHEN SHE IS READY TO TO GO.
--- NOTE | 2020-03-24 17:32 | NUR ---
GABRIELE PAPER SIGNED BY PATIENT AND SHE WAS TRANSFERRED OUT VIA WHEELCHAIR TO PRIVATE CAR. VSS.
--- NOTE | 2020-03-25 14:54 | NUR ---
GRADUATING MACHINE OPERATOR RECEIVED VOICE MESSAGE FROM PATIENTS DAUGHTER REQUESTING A CALL BACK. GRADUATING MACHINE OPERATOR RETURNED CALL AND LEFT A MESSAGE ASKED FOR RETURN CALL.
== END 2020-03-24 18:09 | disposition left against medical advice (07) | DRG 812 ==
LOC: ED 13:49 → EDHOLD 15:50 → 5E 15:59
PROVIDERS: Family Medicine; Internal Medicine; ADMIT Emergency Medicine
PROC: 30233N1 Transfusion of Nonautologous Red Blood Cells into Peripheral Vein, Percutaneous Approach (ICD-10-PCS; principal; 2020-03-22)
DX: D64.9 Anemia, unspecified (principal); K92.2 Gastrointestinal hemorrhage, unspecified; R65.10 Systemic inflammatory response syndrome (SIRS) of non-infectious origin without acute organ dysfunction; I50.32 Chronic diastolic (congestive) heart failure; F17.210 Nicotine dependence, cigarettes, uncomplicated; R26.2 Difficulty in walking, not elsewhere classified; K21.9 Gastro-esophageal reflux disease without esophagitis; I11.0 Hypertensive heart disease with heart failure; J44.9 Chronic obstructive pulmonary disease, unspecified; R53.1 Weakness; G20 Parkinson's disease; R73.9 Hyperglycemia, unspecified; E78.5 Hyperlipidemia, unspecified; Z53.29 Procedure and treatment not carried out because of patient's decision for other reasons; Z66 Do not resuscitate; Z51.5 Encounter for palliative care; F32.9 Major depressive disorder, single episode, unspecified; F41.1 Generalized anxiety disorder; Z86.73 Personal history of transient ischemic attack (TIA), and cerebral infarction without residual deficits; Z79.82 Long term (current) use of aspirin; Z86.711 Personal history of pulmonary embolism; Z86.718 Personal history of other venous thrombosis and embolism; Z80.1 Family history of malignant neoplasm of trachea, bronchus and lung; Z82.49 Family history of ischemic heart disease and other diseases of the circulatory system; Z79.899 Other long term (current) drug therapy; Z79.01 Long term (current) use of anticoagulants

== ENCOUNTER 2020-04-08 14:28 | Emergency (ER) | payer MEDICARE ==
[~2020-04-08] VITALS: Ht 152.4 cm; Wt 63.5 kg
== END 2020-04-08 17:13 | disposition home or self-care (01) ==
LOC: ED 14:28
DX: S01.512A Laceration without foreign body of oral cavity, initial encounter (principal); F17.200 Nicotine dependence, unspecified, uncomplicated; Z79.899 Other long term (current) drug therapy; Z79.82 Long term (current) use of aspirin; X58.XXXA Exposure to other specified factors, initial encounter; Y93.89 Activity, other specified; Y92.89 Other specified places as the place of occurrence of the external cause; Y99.8 Other external cause status

== ENCOUNTER 2020-04-17 08:13 | Inpatient (IN) | payer MEDICARE ==
[~2020-04-17] VITALS: Ht 152.4 cm; Wt 61.0 kg
[2020-04-17] VITALS (12 sets, daily range): BP systolic 104–141; BP diastolic 38–99
[2020-04-17 08:48] LABS: MEAN CORPUSCULAR HGB 20.8 pg (27.0-31.0); MEAN CORPUSCULAR HGB CONC 27.4 g/dl (33.0-37.0); MEAN PLATELET VOLUME 10.1 fl (9.6-12.3); PLATELET COUNT AUTOMATED 361 10*3/uL (130-400); RED BLOOD COUNT 2.21 10*6/uL (4.10-5.10); RED CELL DISTRI WIDTH 18.8 % (0-14.5); WHITE BLOOD COUNT 8.1 10*3/uL (4.8-10.8)
[2020-04-17 08:57] LABS: ACT PARTIAL THROMBO TIME 25.5 SECONDS (20.0-32.1); INTERNATIONAL NORM RATIO 1.3 (2.0-3.5)
[2020-04-17 09:04] LABS: LIPASE 105 U/L (73-393)
[2020-04-17 09:05] LABS: ALBUMIN 2.9 gm/dl (3.1-4.5); ALKALINE PHOSPHATASE 86 U/L (45-117); BUN 21 mg/dl (7-24); CHLORIDE 104 mmol/L (98-107); CREATININE 1.03 mg/dL (0.55-1.02); HEMATOCRIT 16.8 % (37.0-47.0); POTASSIUM 2.6 mmol/L (3.5-5.1); SGOT/AST 8 IU/L (3-35); SGPT/ALT 8 U/L (12-78); SODIUM 141 mmol/L (136-145); TOTAL PROTEIN 6.3 gm/dL (6.4-8.2)
[2020-04-17 09:06] LABS: TROPONIN I 0.024 ng/ml (<0.045)
--- NOTE | 2020-04-17 09:13 | NUR ---
PATIENT DENIES WOUNDS A&OX4.
[2020-04-17 09:22] LABS: BASOPHILS 2 % (0-1); TOTAL CELLS COUNTED 100 #CELLS
[2020-04-17 09:23] LABS: BURR CELLS FEW; PLATELET SUFFICIENCY NORMAL (NORMAL); SCHISTOCYTES FEW; TARGET CELLS MANY
[2020-04-17 09:27] LABS: HEMATOCRIT 15.7 % (37.0-47.0)
--- NOTE | 2020-04-17 11:05 | NUR ---
PATIENT TAKEN TO [facility] AT THIS TIME BY THIS NURSE. NO CHANGE IN PATIENT STATJUS. PATIENT BLOOD HAS BEEN TITRATED TO 125ML/HR.
--- NOTE | 2020-04-17 11:15 | NUR ---
A 74, admitted to [facility], under the services of DEBBIE Zamora DO with a diagnosis of GI BLEED. Chief complaint is WEAK,LIGHTHEADED. Patient arrived via ambulance from ER. Monitor applied. Initial assessment completed. Vital signs taken and recorded. DEBBIE ZAMORA DO notified of admission to the unit. Orders received. See assessment for past medical history, medications and allergies. Patient and/or family oriented to unit. [facility] visitation policy reviewed. Clothing/patient valuable form completed. LEONARDO ROJO
--- NOTE | 2020-04-17 11:37 | NUR ---
MED REC UPDATED PER MOON BLOOR CLAIM HISTORY
--- NOTE | 2020-04-17 11:37 | NUR ---
NATALIA RECEIVED CALL FROM PATIENTS BROTHER ABOUT THIS PATIENT NEEDING PLACEMENT. FARM MACHINERY ASSEMBLER EXPLAINED THE PATIENT WOULD HAVE TO BE AGREEABLE. HE STATED THAT THE HE HAS BEEN SPEAKING TO ALICE ABOUT THIS PATIENT AND THAT THIS PATIENT WILL NEED A COVID TEST. PATIENT JUST ADMITTED TO [facility]. CASE MANAGEMENT WILL FOLLOW UP WITH THE PATIENT TOMORROW.
--- NOTE | 2020-04-17 12:10 | NUR ---
INSTRUCTIONAL MANAGER RECEIVED CALL FROM THIS PATIENTS BROTHER AND HIS . THE BROTHER STATED " IF ANITA GETS DISCHARGED KEEP HER AT THE HOSPITAL AND SEND HER TO [facility] IN [place]." INSTRUCTIONAL MANAGER EXPLAINED AT THIS TIME THE PATIENT IS HER OWN PERSON. IF THE PATIENT IS TO BE DISCHARGED WE CANNOT KEEP HER HERE AGAINST HER WILL. INSTRUCTIONAL MANAGER EXPLAINED IT WOULD BE ILLEGAL AND WOULD CONSITUTE KIDNAPING. PATIENT BROTHER STATED HE WOULD TAKE HER TO A W[employer]UR[employer] CONTROLS ENGINEER AND HAVE HER DECLARED INCOMPETENT. INSTRUCTIONAL MANAGER EXPLAINED THE PROCESS OF NEEDING A COMPETENCY EVALUATION AND THE PROCESS BEHIND IT. INSTRUCTIONAL MANAGER EXPLAINED THOUGH HE MAY HOLD DPOA-HC UNTIL THE PATIENT WOUL BE EVALUATED AND IT BE NOTED SHE IS NOT ABLE TO MAKE HER OWN [facility] DECISION THERE IS NO WEIGHT BEHIND THE DOCUMENT. PATIENTS BROTHER STATED THAT THE PATIENT IS AGREEABLE TO HIM AND HIS ABOUT AN ADMISSION INTO [facility]. INSTRUCTIONAL MANAGER EXPLAINED THAT THE PATIENT HAS TO BE AGREEABLE IN THIS FACILITY. INSTRUCTIONAL MANAGER EXPLAINED SEVERAL TIMES IN THIS CONVERSTATION AND COVERSATIONS IN THE PAST THAT THE PATIENT REFUSES PLACEMENT LAST MINUTE AND SIGNS OUT AMA OR DISCHARGES HOME. PATIENTS BROTHER ACKNOWLEDGED THIS PATTERN. THE PHONE DISCONNETED. INSTRUCTIONAL MANAGER CALLED THE BROTHER BACK. PATIENTS SISTER IN LAW WAS YELLING IN THE BACKGROUND TO HANG UP THE PHONE. INSTRUCTIONAL MANAGER EXPLAINED EVERYTHING TO THE PATIENTS BROTHER AGAIN ABOUT THE PROCESS THAT NEEDED TO TAKE PLACE. HE UNDERSTOOD. NATALIA SPOKE WITH RN HOSPITALIST COORDINATOR HUSSEIN ABOUT A COMPETENCY EVALUATION.
--- NOTE | 2020-04-17 12:38 | NUR ---
ENGRAVER STEEL PLATE SPOKE WITH FRANKLIN BRIAN ABOUT MESSAGE TO CHAIR AND COUCH MAKER.
--- NOTE | 2020-04-17 13:00 | NUR ---
FIRST UNIT OF BLOOD COMPLETED AT THIS TIME. TOLERATED WELL. SEE DOCUMENTATION
--- NOTE | 2020-04-17 13:25 | NUR ---
2ND UNIT OF BLOOD STARTED AT THIS TIME. TOLERATING WELL. RN WITH PATIENT FOR FIRST 15 MINUTES
--- NOTE | 2020-04-17 14:50 | NUR ---
SECOND UNIT OF BLOOD COMPLETED AT THIS TIME. TOLERATED WELL. STATES SHE FEELS BETTER THAN EARLIER. LABS TO BE DRAWN IN APPROXIMATELY 2 HOURS PER PROTOCOL.
[2020-04-17 16:15] LABS: BASO # 0.1 10*3/uL (0.0-0.1); BASO % 0.8 % (0.0-1.0); EOS # 0.1 10*3/uL (0.0-0.4); EOS % 1.4 % (1.0-4.0); HEMATOCRIT 25.4 % (37.0-47.0); LYMPH # 0.9 10*3/uL (1.3-4.4); LYMPH % 11.6 % (27.0-41.0); MEAN CORPUSCULAR HGB 24.8 pg (27.0-31.0); MEAN CORPUSCULAR HGB CONC 30.7 g/dl (33.0-37.0); MEAN PLATELET VOLUME 10.4 fl (9.6-12.3); MONO # 0.6 10*3/uL (0.1-1.0); MONO % 6.9 % (3.0-9.0); NEUT # 6.3 10*3/uL (2.3-7.9); PLATELET COUNT AUTOMATED 281 10*3/uL (130-400); RED BLOOD COUNT 3.15 10*6/uL (4.10-5.10); RED CELL DISTRI WIDTH 18.5 % (0-14.5)
[2020-04-17 16:16] LABS: MEAN CELL VOLUME 80.6 fl (81.0-99.0)
--- NOTE | 2020-04-17 16:45 | NUR ---
DR GARCIA MADE AWARE OF CBC RESULTS. NO NEW ORDERS. STATES TO HOLD OFF ON ORDERING THE THIRD UNIT
--- NOTE | 2020-04-17 17:30 | NUR ---
DINNER ORDERED AT THIS TIME. PATIENT SITTING UP AT THE BEDSIDE. DENIES ANY NEEDS. 2ND K RUN INFUSING INTO THE LEFT HAND. TOLERATING WELL.
[2020-04-17 18:43] LABS: BASO % 0.5 % (0.0-1.0); EOS # 0.1 10*3/uL (0.0-0.4); EOS % 1.3 % (1.0-4.0); HEMATOCRIT 25.5 % (37.0-47.0); LYMPH # 1.3 10*3/uL (1.3-4.4); LYMPH % 15.8 % (27.0-41.0); MEAN CELL VOLUME 79.9 fl (81.0-99.0); MEAN CORPUSCULAR HGB 24.5 pg (27.0-31.0); MEAN CORPUSCULAR HGB CONC 30.6 g/dl (33.0-37.0); MEAN PLATELET VOLUME 10.4 fl (9.6-12.3); MONO # 0.7 10*3/uL (0.1-1.0); MONO % 8.4 % (3.0-9.0); NEUT # 6.1 10*3/uL (2.3-7.9); NEUT % 73.5 % (47.0-73.0); PLATELET COUNT AUTOMATED 280 10*3/uL (130-400); RED BLOOD COUNT 3.19 10*6/uL (4.10-5.10); RED CELL DISTRI WIDTH 18.1 % (0-14.5); WHITE BLOOD COUNT 8.3 10*3/uL (4.8-10.8)
--- NOTE | 2020-04-17 20:00 | NUR ---
PT SITTING UP ON SIDE OF BED, A&OX3, PLEASANT AND COOPERAIVE WITH STAFF. RESP NONLABORED. NO ACUTE DISTRESS NOTED. NO COMPLAINTS VOICED. TORIS PATENT.
[2020-04-18] VITALS: BP 112/43
--- NOTE | 2020-04-18 01:56 | NUR ---
MEDEICATED WITH ZOFRAN PER PRN ORDER FOR C/O NAUSEA/UPSET STOMACH.
[2020-04-18 04:00] VITALS: BP 115/40
[2020-04-18 05:49] LABS: ALBUMIN 2.7 gm/dl (3.1-4.5); BUN 21 mg/dl (7-24); CHLORIDE 106 mmol/L (98-107); CREATININE 0.94 mg/dL (0.55-1.02); SGOT/AST 9 IU/L (3-35); SGPT/ALT 9 U/L (12-78); SODIUM 143 mmol/L (136-145); TOTAL PROTEIN 5.7 gm/dL (6.4-8.2)
[2020-04-18 05:54] LABS: BASO # 0.1 10*3/uL (0.0-0.1); BASO % 0.6 % (0.0-1.0); EOS # 0.3 10*3/uL (0.0-0.4); EOS % 3.5 % (1.0-4.0); LYMPH # 1.1 10*3/uL (1.3-4.4); LYMPH % 13.5 % (27.0-41.0); MEAN CELL VOLUME 80.7 fl (81.0-99.0); MEAN CORPUSCULAR HGB 24.9 pg (27.0-31.0); MEAN CORPUSCULAR HGB CONC 30.9 g/dl (33.0-37.0); MEAN PLATELET VOLUME 10.8 fl (9.6-12.3); MONO # 0.6 10*3/uL (0.1-1.0); MONO % 7.5 % (3.0-9.0); NEUT # 6.2 10*3/uL (2.3-7.9); NEUT % 74.2 % (47.0-73.0); PLATELET COUNT AUTOMATED 256 10*3/uL (130-400); RED BLOOD COUNT 2.85 10*6/uL (4.10-5.10); RED CELL DISTRI WIDTH 18.3 % (0-14.5); WHITE BLOOD COUNT 8.4 10*3/uL (4.8-10.8)
[2020-04-18 05:55] LABS: ALKALINE PHOSPHATASE 93 U/L (45-117); FREE T4 1.29 ng/dl (0.76-1.46)
[2020-04-18 06:01] LABS: THYROID STIM HORMONE (HS) < 0.005 uIU/ml (0.358-4.75)
--- NOTE | 2020-04-18 07:05 | NUR ---
PATIENT BROTHER TARI CALLED IN TO ICU, STATES HE WANTS PATIENT TESTED FOR CANCER HER MOTHER FROM CANCER AND THAT HE WANTS HER TO BE TESTED. INFORMATION PASSED ALONG TO
--- NOTE | 2020-04-18 07:47 | NUR ---
RN IN TO SEE PATIENT AT THIS TIME, PATIENT SITTING AT SIDE OF BED. INFORMED OF PLAN OF CARE FOR TODAY. INFORMED ABOUT LAB LEVELS AND NEED FOR ADDITIONAL POTASSIUM TO BE GIVEN. PATIENT AGREED AND VERBALIZED UNDERSTANDING. REQUESTING TO EAT BREAKFAST, INFORMED OF NPO STATUS, VERBALIZED UNDERSTANDING.
--- NOTE | 2020-04-18 07:49 | NUR ---
RADIOLOGY CALLED REGARDING [facility]. INFORMED THAT THEY WILL BE READY TO GET PATIENT IN ABOUT 15 MINUTES
[2020-04-18 08:00] VITALS: BP 110/47
--- NOTE | 2020-04-18 08:08 | NUR ---
PATIENT OFF FLOOR FOR TESTING AT THIS TIME
--- NOTE | 2020-04-18 08:48 | NUR ---
RADIOLOGY CALLED STATES THAT PATIENT IS HAVING MULITPLE COMPLAINTS SUCH NAUSEA/NERVOUSNESS/RESTLESSNESS. STATES THAT THE TEST WILL NOT BE ABLE TO BE COMPLETED WITH PATIENT FIDGETING SO MUCH. DR GARCIA ON FLOOR, DISCUSSED WITH HER, ATIVAN PO ORDERED TO HELP PATIENT
--- NOTE | 2020-04-18 09:00 | NUR ---
CM in to see patient. She is not currently in her room. Will follow up at a later time.
--- NOTE | 2020-04-18 09:09 | NUR ---
RN ARRIVED TO NUC MED, PATIENT VERY RESTLESS ON TABLE, COMPLAINING OF PAIN, COMPLAINING OF NAUSEA, COMPLAINTS OF ANXIETY AND NERVOUSNESS RELATED TO PROCEDURE. RN MEDICATED WITH MULTIPLE MEDICATIONS, MORPHINE, ZOFRAN, ATIVAN. RN WILL MONITOR FOR EFFECTIVENESS
--- NOTE | 2020-04-18 10:10 | NUR ---
PATIENT COUGHING AND COUGHING AFTER COMING BACK FROM RADIOLOGY. DR GARCIA ON FLOOR AND MADE AWARE THAT PATIENT HAS NO PRN ORDERS. STATES SHE WILL CHANGE DUONEB ORER TO PRN
--- NOTE | 2020-04-18 10:15 | NUR ---
PRN DUONEB GIVEN AAT THIS TIME
--- NOTE | 2020-04-18 10:28 | NUR ---
PATIENT RESTING MUCH EASIER NOW AFTER EARLIER MEDICATION AND BREATHING TREATMENT. APPEARS TO BE SLEEPING. RN WILL CONTINUE TO MONITOR
[2020-04-18 12:00] VITALS: BP 122/52
--- NOTE | 2020-04-18 12:00 | NUR ---
Public Health Epidemiologist in to talk to patient. Patient states lives at home with her brother and her [id number]. There are 12 steps in the home. Physician: Kashif Bruno [facility]: [facility] Home health services: [facility] Patient's level of ADLs: MINIMAL ASSIST Patient has working utilities: yes DME: walker, wheelchair, nebulizer Follow-up physician's appointment after d/c: will be made by the hospitalist nurse director upon discharge Does patient want to access PORTAL?: no Discharge plan discussed with patient. She lives at home with her brother and [id number]. She needs minimal assistance with her ADLs and ambulates with a walker or gets around in a wheelchair. Discussed short term rehab and she adamantly refuses. Discussed her brother wishing her to go to a facility. She states she will return home with her brother. Discussed home health care services and she is agreeable. When provided with a list of agencies she chose [facility]. When medically stable she will be discharged to home with [facility] services. She states her brother will provide transportation on discharge. KEVAN CHAPA
--- NOTE | 2020-04-18 13:05 | NUR ---
BACK TO RADIOLOGY AT THIS TIME
--- NOTE | 2020-04-18 13:27 | NUR ---
PATIENT BACK FROM [facility] AND IS NOW COMPLETE. PATIENT STILL ASKS TO EAT AND WAS INFORMED THAT SHE HAS TO WAIT UNTIL THE DR SEES HER IN CASE THEY FIND THE CAUSE OF BLEED AND NEED TO INTERVENE RIGHT AWAY. PATIENT DOES NOT VERBALIZE UNDERSTANDING, CONTINUES TO ASK FOR POPSICLES AND CUPS OF COFFEE.
--- NOTE | 2020-04-18 14:02 | NUR ---
NATALIA RECEIVED CALL FROM PATIENTS BROTHER. HE STATED THAT WANTED THE PATIENT PLACED IN A SNF. NATALIA EXPLAINED UNTIL THE PATIENT WOULD BE FOUND INCOMPETENT THAT CANNOT HAPPEN. HE STATED THAT THE PATIENT IS NOT IN HER RIGHT STATE OF MIND. NATALIA EXPLAINED THERE IS A CONSULT IN AND THAT THE DOCTOR WILL MAKE THE APPRIOPRATE RECOMMENDATION. HE UNDERSTOOD.
--- NOTE | 2020-04-18 14:20 | NUR ---
DR CHAPA IN TO SEE PATIENT
--- NOTE | 2020-04-18 14:27 | NUR ---
DINNER ORDERED AFTER DR CHAPA IN TO VISIT.
--- NOTE | 2020-04-18 15:50 | NUR ---
Shift chart check completed.
[2020-04-18 16:00] VITALS: BP 115/42
[2020-04-18 20:00] VITALS: BP 109/37
--- NOTE | 2020-04-18 20:00 | NUR ---
PT RESTING IN BED WITH EYES CLOSED, AWAKENS EASILY, ALERT AND OREIENTED. RESP NONLABORED. POX 89% ON RA, 2L NC PLACED AND POX 96%. NO ACUTE DISTRESS NOTED. NO COMPLAINTS VOICED. DENEENA[employer] PATENT.
[2020-04-19] VITALS (13 sets, daily range): BP systolic 99–120; BP diastolic 34–71
--- NOTE | 2020-04-19 08:15 | NUR ---
TAKEN OFF FLOOR FOR CXR
--- NOTE | 2020-04-19 09:30 | NUR ---
CM in to see patient. She is sitting on the edge of her bed. Discussed discharge planning. She states she wants to go home to her brother and grklil-ot-[id number]'s house with [facility] services. When medically stable she will be discharged to home with [facility] services.
[2020-04-19 09:37] LABS: HEMATOCRIT 22.8 % (37.0-47.0); MEAN CELL VOLUME 82.9 fl (81.0-99.0); MEAN CORPUSCULAR HGB 24.7 pg (27.0-31.0); MEAN CORPUSCULAR HGB CONC 29.8 g/dl (33.0-37.0); MEAN PLATELET VOLUME 10.7 fl (9.6-12.3); PLATELET COUNT AUTOMATED 266 10*3/uL (130-400); RED BLOOD COUNT 2.75 10*6/uL (4.10-5.10); RED CELL DISTRI WIDTH 19.7 % (0-14.5); WHITE BLOOD COUNT 8.9 10*3/uL (4.8-10.8)
[2020-04-19 09:51] LABS: ALBUMIN 2.7 gm/dl (3.1-4.5); ALKALINE PHOSPHATASE 90 U/L (45-117); BUN 15 mg/dl (7-24); CHLORIDE 106 mmol/L (98-107); CREATININE 0.85 mg/dL (0.55-1.02); SGOT/AST 14 IU/L (3-35); SGPT/ALT 9 U/L (12-78); SODIUM 143 mmol/L (136-145); TOTAL PROTEIN 5.8 gm/dL (6.4-8.2)
[2020-04-19 09:59] LABS: POTASSIUM 4.2 mmol/L (3.5-5.1)
[2020-04-19 10:02] LABS: PLATELET SUFFICIENCY NORMAL (NORMAL); TOTAL CELLS COUNTED 100 #CELLS
--- NOTE | 2020-04-19 10:50 | NUR ---
BLOOD STARTED AT 125CC/HR VIA RIGHT HAND
--- NOTE | 2020-04-19 10:57 | NUR ---
[facility] NOTIFIED OF CONSULT.
--- NOTE | 2020-04-19 12:50 | NUR ---
BLOOD FINISHED. TOLERATED WELL. NO SIGNS OF TRANSFUSION REACTION
[2020-04-19 15:38] LABS: BASO % 0.4 % (0.0-1.0); EOS # 0.2 10*3/uL (0.0-0.4); EOS % 2.4 % (1.0-4.0); HEMATOCRIT 26.5 % (37.0-47.0); LYMPH # 1.2 10*3/uL (1.3-4.4); LYMPH % 11.9 % (27.0-41.0); MEAN CELL VOLUME 83.3 fl (81.0-99.0); MEAN CORPUSCULAR HGB 25.2 pg (27.0-31.0); MEAN CORPUSCULAR HGB CONC 30.2 g/dl (33.0-37.0); MEAN PLATELET VOLUME 9.8 fl (9.6-12.3); MONO # 0.7 10*3/uL (0.1-1.0); MONO % 7.2 % (3.0-9.0); NEUT # 7.9 10*3/uL (2.3-7.9); NEUT % 77.8 % (47.0-73.0); PLATELET COUNT AUTOMATED 240 10*3/uL (130-400); RED BLOOD COUNT 3.18 10*6/uL (4.10-5.10); WHITE BLOOD COUNT 10.1 10*3/uL (4.8-10.8)
--- NOTE | 2020-04-19 22:53 | NUR ---
Patient requested a tylenol to help with the pain in her rt foot. Patient states she broke it 4-5yrs ago and it hurts her every once in awhile. Tylenol given. Will monitor and reassess.
[2020-04-20] VITALS: BP 116/44
--- NOTE | 2020-04-20 | NUR ---
Tylenol effective for pain.
[2020-04-20 05:53] LABS: BASO % 0.5 % (0.0-1.0); EOS # 0.3 10*3/uL (0.0-0.4); EOS % 3.2 % (1.0-4.0); HEMATOCRIT 26.6 % (37.0-47.0); LYMPH # 1.6 10*3/uL (1.3-4.4); LYMPH % 19.4 % (27.0-41.0); MEAN CELL VOLUME 84.4 fl (81.0-99.0); MEAN CORPUSCULAR HGB 25.4 pg (27.0-31.0); MEAN CORPUSCULAR HGB CONC 30.1 g/dl (33.0-37.0); MEAN PLATELET VOLUME 10.4 fl (9.6-12.3); MONO # 0.7 10*3/uL (0.1-1.0); MONO % 8.5 % (3.0-9.0); NEUT # 5.5 10*3/uL (2.3-7.9); NEUT % 67.3 % (47.0-73.0); PLATELET COUNT AUTOMATED 220 10*3/uL (130-400); RED BLOOD COUNT 3.15 10*6/uL (4.10-5.10); RED CELL DISTRI WIDTH 19.4 % (0-14.5); WHITE BLOOD COUNT 8.1 10*3/uL (4.8-10.8)
[2020-04-20 08:00] VITALS: BP 125/56
[2020-04-20 12:00] VITALS: BP 137/64
[2020-04-20 16:00] VITALS: BP 95/63
--- NOTE | 2020-04-20 19:37 | NUR ---
PATIENT RESTING IN BED WITH EYES CLOSED. ARROUSES EASILY. DENIES ANY NEEDS AT THIS TIME. BED IN LOWEST POSITION, CALL LIGHT IN REACH
[2020-04-20 20:00] VITALS: BP 106/85
[2020-04-21] VITALS: BP 119/70
[2020-04-21 06:01] LABS: BASO % 0.6 % (0.0-1.0); EOS # 0.3 10*3/uL (0.0-0.4); EOS % 4.4 % (1.0-4.0); HEMATOCRIT 27.3 % (37.0-47.0); LYMPH # 0.9 10*3/uL (1.3-4.4); LYMPH % 12.5 % (27.0-41.0); MEAN CORPUSCULAR HGB 24.9 pg (27.0-31.0); MEAN CORPUSCULAR HGB CONC 29.7 g/dl (33.0-37.0); MEAN PLATELET VOLUME 10.4 fl (9.6-12.3); MONO # 0.6 10*3/uL (0.1-1.0); MONO % 8.1 % (3.0-9.0); NEUT # 5.2 10*3/uL (2.3-7.9); PLATELET COUNT AUTOMATED 258 10*3/uL (130-400); RED BLOOD COUNT 3.25 10*6/uL (4.10-5.10); RED CELL DISTRI WIDTH 19.1 % (0-14.5); WHITE BLOOD COUNT 7.1 10*3/uL (4.8-10.8)
[2020-04-21 06:03] LABS: BUN 12 mg/dl (7-24); CHLORIDE 106 mmol/L (98-107); CREATININE 0.76 mg/dL (0.55-1.02); POTASSIUM 3.3 mmol/L (3.5-5.1); SODIUM 143 mmol/L (136-145)
--- NOTE | 2020-04-21 07:52 | NUR ---
ASSESSMENT COMPLETE AT THIS TIME WITHOUT INCIDENCE. PT WAS UP WALK TO BATHROOM, NOT SITTING IN CHAIR COMPLAINING OF BEING SOB. 02 WAS 91% SO PATIENT PLACED ON 2LNC, WILL CONTINUE TO MONITOR. PT HAS NO OTHER COMPLAINTS AT THIS TIME, WILL CONTINUE TO MONITOR, CALL LIGHT WIHTIN REACH
[2020-04-21 08:00] VITALS: BP 141/65
--- NOTE | 2020-04-21 10:49 | NUR ---
DR VILLAGOMEZ IN TO SEE PATIENT
--- NOTE | 2020-04-21 11:37 | NUR ---
patient assessed for the use of home oxygen. at rest: heart rate:94 respirstory rate:20 blood pressure:141/65 spo2:90% on room air during ambulation, patient had to use a walker, and also showed signs of increased work of breathing and weakness. during ambulation heart rate :102 respiratory rate:26 spo2:84% on room air spo2:92% on 2 l nasal cannula. the patient would probably benefit from 2 lnc contineuosly around the clock.
[2020-04-21 12:00] VITALS: BP 118/42
--- NOTE | 2020-04-21 12:13 | NUR ---
SPOKE TO DEBORAH FROM RESPIRATORY, HE STATES THAT THE PATIENT DOES QUALIFY FOR HOME OXYGEN AT 2L. HE NOTIFIED DR VILLAGOMEZ AND WILL WORK ON SETTING UP THE ORDER.
[2020-04-21 16:00] VITALS: BP 128/57
[2020-04-21 20:00] VITALS: BP 126/41
--- NOTE | 2020-04-21 20:00 | NUR ---
PATIENT SITTING IN CHAIR AT BEDSIDE. POPSICLE GIVEN PER REQUEST. RHALES HEARD DURING AUSCULATION. 2L O2 NC ON AT THIS TIME. DENIES SHORTNESS OF BREATH. BED IN LOWEST POSITION, CALL LIGHT IN REACH
--- NOTE | 2020-04-21 22:49 | NUR ---
PATIENT RESTING IN BED WITH EYES CLOSED. RESPS EASY AND REGULAR. BED IN LOWEST POSITION, CALL LIGHT IN REACH, BED ALARM ON
[2020-04-22] VITALS: BP 102/41
--- NOTE | 2020-04-22 02:14 | NUR ---
PATIENT RESTING IN BED WITH NO S/S OF DISTRESS. RESPS EASY AND REGULAR. BED IN LOWEST POSITION, CALL LIGHT IN REACH
--- NOTE | 2020-04-22 02:21 | NUR ---
24 HR chart check completed.
--- NOTE | 2020-04-22 06:01 | NUR ---
PATIENT RESTING IN BED WITH NO S/S OF DISTRESS. RESPS EASY AND REGULAR ON 2L NC. BED ALARM ON, BED IN LOWEST POSITION, CALL LIGHT IN REACH
[2020-04-22 07:25] LABS: BASO % 0.2 % (0.0-1.0); EOS % 0.2 % (1.0-4.0); LYMPH # 0.6 10*3/uL (1.3-4.4); LYMPH % 10.3 % (27.0-41.0); MEAN CELL VOLUME 83.9 fl (81.0-99.0); MEAN CORPUSCULAR HGB 24.5 pg (27.0-31.0); MEAN CORPUSCULAR HGB CONC 29.2 g/dl (33.0-37.0); MEAN PLATELET VOLUME 10.1 fl (9.6-12.3); MONO # 0.6 10*3/uL (0.1-1.0); MONO % 9.6 % (3.0-9.0); NEUT # 4.8 10*3/uL (2.3-7.9); NEUT % 79.4 % (47.0-73.0); PLATELET COUNT AUTOMATED 224 10*3/uL (130-400); RED CELL DISTRI WIDTH 19.3 % (0-14.5)
[2020-04-22 07:28] LABS: BUN 12 mg/dl (7-24); CHLORIDE 107 mmol/L (98-107); POTASSIUM 3.9 mmol/L (3.5-5.1); SODIUM 144 mmol/L (136-145)
[2020-04-22 08:00] VITALS: BP 124/68
--- NOTE | 2020-04-22 09:00 | NUR ---
CM in to see patient. She is sitting up in her bedside chair. No new needs or request at this time. Discussed short term rehab and she continues to refuse. She states she will be returning to her brother and [id number]'s home on discharge. Discussed home health care services and she remains agreeable to [facility]. When medically stable she will be discharged to home with [facility] services.
--- NOTE | 2020-04-22 09:51 | NUR ---
DR CASAS IN TO SEE PATIENT
[2020-04-22 12:00] VITALS: BP 130/76
--- NOTE | 2020-04-22 12:39 | NUR ---
Faxed home health care referral to [facility]
[2020-04-22] MEDS ORDERED: PRADAXA110 MG PO (13:50)
[2020-04-22] MEDS ORDERED: OLANZAPINE5 MG PO (13:50)
--- NOTE | 2020-04-22 14:31 | NUR ---
Faxed discharge instructions and summary to [facility]
--- NOTE | 2020-04-22 15:31 | NUR ---
HOME OXYGEN HAS ARRIVED ON THE FLOOR. WENT OVER DISCHARGE INSTRUCTIONS WITH THE PATIENT, SHE HAS NO QUESTIONS AT THIS TIME. DISCUSSED HOW SHE NEEDS TO STOP SMOKING. NO WOUNDS TO TAKE PICTURES OF. IV REMOVED. NO FURTHER QUESTIONS, WILL PUT ON HER CALL LIGHT WHEN SHE IS READY TO BE DISCHARGED
--- NOTE | 2020-04-22 15:50 | NUR ---
TN OFF THE FLOOR AT THIS TIME WITH ALL OF HER BELONGINGS AND ON 2L OXYGEN
--- NOTE | 2020-04-23 13:15 | NUR ---
FOREST EXAMINER RETURNED THIS PATIENTS BROTHERS PHONE CALL. FOREST EXAMINER SPOKE WITH [facility] FRANKLIN PATTERSON. SHE STATED THAT WHEN SHE ARRIVED TO THIS PATIENTS HOME HER OXYGEN SAT WAS 87% FOREST EXAMINER ASKED IF THIS PATIENT WAS WEARING HER OXYGEN, SHE RESPONDED SHE WAS NOT AND DID TRAVEL DOWN STEPS. SHE STATED SHE IS CURRENTLY WEARING IT NOW AND IS ABOVE 90%. FOREST EXAMINER EXPLAINED BREIFLY HISTORY WITH THIS PATIENT AND FAMILY. FOREST EXAMINER EXPLAINED THAT SHE WOULD BE REQUIRED A COVID TEST BEFORE [facility] WOULD LOOK AT HER. FRANKLIN PATTERSON UNDERSTOOD. NATALIA REACHED OUT TO [facility] WHO STATED THEY WILL NOT LOOK AT THE PATIENT AGAIN UNTIL A COVID HAS BE SENT OUT FOR TESTING. SHE STATED THEY MAY NOT BE ABLE TO ACCEPT THE PATIENT DUE TO THE EVENTS OF HER GOING/ NOT GOING. NATALIA REACHED OUT TO THE PATIENTS BROTHER AGAIN WHO EXPLAINED THIS FOREST EXAMINER EXPLAIN THE PATIENT CAN GET A COVID TEST FROM HER PCP AND DOES NOT NEED TO COME BACK TO THE ER FOR THIS. HE EXPRESSED HIS CONCERNS NATALIA EXPLAINED EVERY TIME THIS PATIENT IS IN THIS FACILITY SHE REFUSES PLACEMENT AND WE CANNOT FORCE HER SHE IS HER OWN PERSON. HE UNDERSTAND.
== END 2020-04-22 15:31 | disposition home or self-care (01) | DRG 377 ==
LOC: ED 08:13 → ICCU 10:01 → EDHOLD 10:01 → ICCU 10:09 → 4E 04-20 07:52
PROVIDERS: Emergency Medicine; Hospitalist; Student in an Organized Health Care Education/Training Program; Surgery; ADMIT Internal Medicine; ATTEND Internal Medicine
PROC: 30233N1 Transfusion of Nonautologous Red Blood Cells into Peripheral Vein, Percutaneous Approach (ICD-10-PCS; principal; 2020-04-17)
PROC: 30233N1 Transfusion of Nonautologous Red Blood Cells into Peripheral Vein, Percutaneous Approach (ICD-10-PCS; 2020-04-19)
DX: K92.2 Gastrointestinal hemorrhage, unspecified (principal); N17.0 Acute kidney failure with tubular necrosis; E43 Unspecified severe protein-calorie malnutrition; I50.33 Acute on chronic diastolic (congestive) heart failure; D62 Acute posthemorrhagic anemia; E87.2 Acidosis; J96.10 Chronic respiratory failure, unspecified whether with hypoxia or hypercapnia; F02.81 Dementia in other diseases classified elsewhere, unspecified severity, with behavioral disturbance; E87.6 Hypokalemia; R73.9 Hyperglycemia, unspecified; J44.9 Chronic obstructive pulmonary disease, unspecified; E78.5 Hyperlipidemia, unspecified; K21.9 Gastro-esophageal reflux disease without esophagitis; F41.1 Generalized anxiety disorder; F17.210 Nicotine dependence, cigarettes, uncomplicated; I11.0 Hypertensive heart disease with heart failure; G20 Parkinson's disease; G30.9 Alzheimer's disease, unspecified; Z66 Do not resuscitate; Z51.5 Encounter for palliative care; Z82.49 Family history of ischemic heart disease and other diseases of the circulatory system; Z71.6 Tobacco abuse counseling; Z86.11 Personal history of tuberculosis; Z86.711 Personal history of pulmonary embolism; Z80.1 Family history of malignant neoplasm of trachea, bronchus and lung; Z86.718 Personal history of other venous thrombosis and embolism; Z68.24 Body mass index [BMI] 24.0-24.9, adult

== ENCOUNTER → 2020-08-22 | Outpatient (CLI) | payer MEDICARE ==
[~2020-08-22] MED LIST changes: +OLANZAPINE5 MG PO; +PRADAXA110 MG PO
== END | disposition home or self-care (01) ==
LOC: RAD 12:31
PROVIDERS: ATTEND Nurse Practitioner Family
DX: M25.512 Pain in left shoulder (principal)

== ENCOUNTER 2021-02-05 11:12 | Emergency (ER) | payer MEDICARE ==
[~2021-02-05] VITALS: Ht 152.4 cm; Wt 52.6 kg
== END 2021-02-05 13:15 | disposition home or self-care (01) ==
LOC: ED 11:12
DX: M25.551 Pain in right hip (principal); Z79.899 Other long term (current) drug therapy; Z98.890 Other specified postprocedural states; W19.XXXA Unspecified fall, initial encounter; Y93.89 Activity, other specified; Y92.89 Other specified places as the place of occurrence of the external cause; Y99.8 Other external cause status

== ENCOUNTER 2021-03-03 06:32 | Inpatient (IN) | payer MEDICARE ==
[~2021-03-03] VITALS: Ht 152.4 cm; Wt 54.1 kg
[2021-03-03] VITALS (7 sets, daily range): BP systolic 131–174; BP diastolic 61–81
[2021-03-03 07:00] LABS: BASO # 0.1 10*3/uL (0.0-0.1); BASO % 0.4 % (0.0-1.0); EOS # 0.2 10*3/uL (0.0-0.4); EOS % 1.7 % (1.0-4.0); HEMATOCRIT 45.4 % (37.0-47.0); LYMPH % 8.6 % (27.0-41.0); MEAN CELL VOLUME 90.6 fl (81.0-99.0); MEAN CORPUSCULAR HGB 28.7 pg (27.0-31.0); MEAN CORPUSCULAR HGB CONC 31.7 g/dl (33.0-37.0); MEAN PLATELET VOLUME 9.4 fl (9.6-12.3); MONO # 0.7 10*3/uL (0.1-1.0); MONO % 5.4 % (3.0-9.0); NEUT # 10.1 10*3/uL (2.3-7.9); NEUT % 83.6 % (47.0-73.0); PLATELET COUNT AUTOMATED 240 10*3/uL (130-400); RED BLOOD COUNT 5.01 10*6/uL (4.10-5.10); RED CELL DISTRI WIDTH 12.9 % (0-14.5); WHITE BLOOD COUNT 12.1 10*3/uL (4.8-10.8)
[2021-03-03 07:18] LABS: ALBUMIN 3.4 gm/dl (3.1-4.5); ALKALINE PHOSPHATASE 131 U/L (45-117); BUN 14 mg/dl (7-24); CHLORIDE 109 mmol/L (98-107); LIPASE 121 U/L (73-393); POTASSIUM 3.7 mmol/L (3.5-5.1); SGOT/AST 16 IU/L (3-35); SGPT/ALT 12 U/L (12-78); SODIUM 140 mmol/L (136-145); TOTAL PROTEIN 7.1 gm/dL (6.4-8.2)
[2021-03-03 07:19] LABS: TROPONIN I < 0.015 ng/ml (<0.045)
[2021-03-03 11:43] LABS: BUN 12 mg/dl (7-24); CHLORIDE 109 mmol/L (98-107); CREATININE 0.85 mg/dL (0.55-1.02); POTASSIUM 3.8 mmol/L (3.5-5.1); SODIUM 140 mmol/L (136-145)
[2021-03-03] MEDS ORDERED: ASPIRIN CHEWABL81 MG PO (11:59)
[2021-03-03] MEDS ORDERED: ZOLOFT50 MG PO (12:00)
[2021-03-03] MEDS ORDERED: IRON325 M3 PO (12:02)
[2021-03-03] MEDS ORDERED: OMEPRAZOLE MAGN20 MG PO (12:04)
[2021-03-03] MEDS ORDERED: VITAMIN C500 M4 PO (12:05)
[2021-03-04] VITALS: BP 120/56
[2021-03-04 04:00] VITALS: BP 130/60
[2021-03-04 06:18] LABS: HEMATOCRIT 41.4 % (37.0-47.0); MEAN CELL VOLUME 91.8 fl (81.0-99.0); MEAN CORPUSCULAR HGB 28.8 pg (27.0-31.0); MEAN CORPUSCULAR HGB CONC 31.4 g/dl (33.0-37.0); MEAN PLATELET VOLUME 10.1 fl (9.6-12.3); PLATELET COUNT AUTOMATED 211 10*3/uL (130-400); RED BLOOD COUNT 4.51 10*6/uL (4.10-5.10); RED CELL DISTRI WIDTH 12.9 % (0-14.5); WHITE BLOOD COUNT 8.8 10*3/uL (4.8-10.8)
[2021-03-04 06:26] LABS: BUN 17 mg/dl (7-24); CHLORIDE 109 mmol/L (98-107); POTASSIUM 4.2 mmol/L (3.5-5.1); SODIUM 142 mmol/L (136-145)
[2021-03-04 06:40] LABS: CHOLESTEROL 184 mg/dL (<200); CREATININE 0.82 mg/dL (0.55-1.02); LDL CHOLESTEROL 105 mg/dL (9-159); TRIGLYCERIDES 62 mg/dl (<150)
[2021-03-04 06:44] LABS: THYROID STIM HORMONE (HS) < 0.005 uIU/ml (0.358-4.75)
[2021-03-04 07:01] LABS: PLATELET SUFFICIENCY NORMAL (NORMAL); TOTAL CELLS COUNTED 100 #CELLS
[2021-03-04 08:00] VITALS: BP 120/80
[2021-03-04 12:00] VITALS: BP 128/98
[2021-03-04 16:00] VITALS: BP 134/68
[2021-03-04 20:00] VITALS: BP 141/74
[2021-03-05] VITALS: BP 147/80
[2021-03-05 05:40] LABS: BUN 22 mg/dl (7-24); CHLORIDE 109 mmol/L (98-107); CREATININE 0.71 mg/dL (0.55-1.02); POTASSIUM 4.7 mmol/L (3.5-5.1); SODIUM 140 mmol/L (136-145)
[2021-03-05 06:17] LABS: BASO % 0.2 % (0.0-1.0); HEMATOCRIT 42.1 % (37.0-47.0); LYMPH # 0.8 10*3/uL (1.3-4.4); LYMPH % 6.7 % (27.0-41.0); MEAN CELL VOLUME 90.9 fl (81.0-99.0); MEAN CORPUSCULAR HGB 28.7 pg (27.0-31.0); MEAN CORPUSCULAR HGB CONC 31.6 g/dl (33.0-37.0); MEAN PLATELET VOLUME 10.2 fl (9.6-12.3); MONO # 0.4 10*3/uL (0.1-1.0); MONO % 3.1 % (3.0-9.0); NEUT # 10.7 10*3/uL (2.3-7.9); NEUT % 89.6 % (47.0-73.0); PLATELET COUNT AUTOMATED 236 10*3/uL (130-400); RED BLOOD COUNT 4.63 10*6/uL (4.10-5.10); RED CELL DISTRI WIDTH 13.2 % (0-14.5); WHITE BLOOD COUNT 11.9 10*3/uL (4.8-10.8)
[2021-03-05 08:00] VITALS: BP 148/78
[2021-03-05 12:00] VITALS: BP 182/72
[2021-03-05 16:00] VITALS: BP 132/71
[2021-03-05 20:00] VITALS: BP 148/79
[2021-03-06] VITALS: BP 169/70
[2021-03-06 05:47] LABS: BUN 27 mg/dl (7-24); CHLORIDE 104 mmol/L (98-107); CREATININE 0.74 mg/dL (0.55-1.02); POTASSIUM 4.4 mmol/L (3.5-5.1); SODIUM 136 mmol/L (136-145)
[2021-03-06 06:20] LABS: BASO % 0.2 % (0.0-1.0); HEMATOCRIT 43.5 % (37.0-47.0); LYMPH # 0.9 10*3/uL (1.3-4.4); LYMPH % 9.9 % (27.0-41.0); MEAN CELL VOLUME 89.9 fl (81.0-99.0); MEAN CORPUSCULAR HGB 28.7 pg (27.0-31.0); MONO # 0.3 10*3/uL (0.1-1.0); MONO % 3.6 % (3.0-9.0); NEUT # 7.9 10*3/uL (2.3-7.9); NEUT % 85.8 % (47.0-73.0); PLATELET COUNT AUTOMATED 259 10*3/uL (130-400); RED BLOOD COUNT 4.84 10*6/uL (4.10-5.10); RED CELL DISTRI WIDTH 12.8 % (0-14.5); WHITE BLOOD COUNT 9.2 10*3/uL (4.8-10.8)
[2021-03-06 08:00] VITALS: BP 149/86
[2021-03-06] MEDS ORDERED: PREDNISONE10 MG PO (11:22)
[2021-03-06] MEDS ORDERED: LEVOFLOXACIN750 M2 PO (11:22)
[2021-03-17] MEDS ORDERED: AUGMENTIN 875-875 MG PO (13:14)
[2021-03-17] MEDS ORDERED: PREDNISONE10 MG PO (13:14)
== END 2021-03-06 11:49 | disposition home or self-care (01) | DRG 871 ==
LOC: ED 06:32 → EDHOLD 10:27 → 4E 10:27
PROVIDERS: Family Medicine; Internal Medicine; Social Worker Clinical; ADMIT Student in an Organized Health Care Education/Training Program; ATTEND Student in an Organized Health Care Education/Training Program
DX: A41.9 Sepsis, unspecified organism (principal); J18.9 Pneumonia, unspecified organism; J44.1 Chronic obstructive pulmonary disease with (acute) exacerbation; J96.10 Chronic respiratory failure, unspecified whether with hypoxia or hypercapnia; I50.32 Chronic diastolic (congestive) heart failure; J44.0 Chronic obstructive pulmonary disease with (acute) lower respiratory infection; G20 Parkinson's disease; F41.1 Generalized anxiety disorder; Z66 Do not resuscitate; F32.9 Major depressive disorder, single episode, unspecified; E78.5 Hyperlipidemia, unspecified; E87.8 Other disorders of electrolyte and fluid balance, not elsewhere classified; R73.9 Hyperglycemia, unspecified; E83.41 Hypermagnesemia; J20.9 Acute bronchitis, unspecified; Z51.5 Encounter for palliative care; I11.0 Hypertensive heart disease with heart failure; Z80.1 Family history of malignant neoplasm of trachea, bronchus and lung; Z86.73 Personal history of transient ischemic attack (TIA), and cerebral infarction without residual deficits; Z86.718 Personal history of other venous thrombosis and embolism; Z86.711 Personal history of pulmonary embolism; Z87.11 Personal history of peptic ulcer disease

== ENCOUNTER 2021-04-25 16:10 | Inpatient (IN) | payer MEDICARE ==
[~2021-04-25] VITALS: Ht 152.4 cm; Wt 52.6 kg
[~2021-04-25 16:10] MED LIST changes: +ASPIRIN CHEWABL81 MG PO; +AUGMENTIN 875-875 MG PO; +IRON325 M3 PO; +LEVOFLOXACIN750 M2 PO; +OMEPRAZOLE MAGN20 MG PO; +VITAMIN C500 M4 PO; +ZOLOFT50 MG PO
[2021-04-25 16:15] VITALS: BP 97/78
[2021-04-25 16:51] LABS: BASO % 0.4 % (0.0-1.0); EOS # 0.2 10*3/uL (0.0-0.4); EOS % 2.2 % (1.0-4.0); HEMATOCRIT 41.2 % (37.0-47.0); LYMPH # 1.4 10*3/uL (1.3-4.4); LYMPH % 14.7 % (27.0-41.0); MEAN CELL VOLUME 88.6 fl (81.0-99.0); MEAN CORPUSCULAR HGB 28.4 pg (27.0-31.0); MEAN PLATELET VOLUME 9.5 fl (9.6-12.3); MONO # 0.7 10*3/uL (0.1-1.0); MONO % 7.4 % (3.0-9.0); NEUT # 7.1 10*3/uL (2.3-7.9); NEUT % 74.9 % (47.0-73.0); PLATELET COUNT AUTOMATED 290 10*3/uL (130-400); RED BLOOD COUNT 4.65 10*6/uL (4.10-5.10); RED CELL DISTRI WIDTH 13.2 % (0-14.5); WHITE BLOOD COUNT 9.5 10*3/uL (4.8-10.8)
[2021-04-25 17:13] LABS: ALBUMIN 3.1 gm/dl (3.1-4.5); ALKALINE PHOSPHATASE 89 U/L (45-117); BUN 13 mg/dl (7-24); CHLORIDE 108 mmol/L (98-107); CREATININE 0.81 mg/dL (0.55-1.02); LIPASE 83 U/L (73-393); POTASSIUM 3.6 mmol/L (3.5-5.1); SGOT/AST 12 IU/L (3-35); SGPT/ALT 12 U/L (12-78); SODIUM 140 mmol/L (136-145); TOTAL PROTEIN 6.8 gm/dL (6.4-8.2)
[2021-04-25 17:14] LABS: TROPONIN I < 0.015 ng/ml (<0.045)
[2021-04-25 18:32] LABS: BILIRUBIN Negative (Negative); BLOOD Negative (Negative); CLARITY Clear (Clear); COLOR Yellow (Yellow); GLUCOSE Negative (Negative); KETONE Trace (Negative); LEUKO ESTERASE Trace (Negative); NITRITE Negative (Negative); PH 5.5 (4.5-8.0); SPECIFIC GRAVITY 1.025 (1.001-1.030)
[2021-04-25 18:40] LABS: RBC 0-2 rbc/hpf (0-2)
[2021-04-25 18:41] LABS: BACTERIA 1+; MUCOUS 1+
[2021-04-26 06:18] LABS: BASO # 0.1 10*3/uL (0.0-0.1); BASO % 0.7 % (0.0-1.0); EOS # 0.3 10*3/uL (0.0-0.4); EOS % 3.5 % (1.0-4.0); HEMATOCRIT 40.5 % (37.0-47.0); LYMPH # 1.2 10*3/uL (1.3-4.4); MEAN CORPUSCULAR HGB 28.4 pg (27.0-31.0); MEAN CORPUSCULAR HGB CONC 31.6 g/dl (33.0-37.0); MONO # 0.6 10*3/uL (0.1-1.0); MONO % 7.6 % (3.0-9.0); NEUT # 5.2 10*3/uL (2.3-7.9); NEUT % 71.6 % (47.0-73.0); PLATELET COUNT AUTOMATED 265 10*3/uL (130-400); RED CELL DISTRI WIDTH 13.2 % (0-14.5); WHITE BLOOD COUNT 7.2 10*3/uL (4.8-10.8)
[2021-04-26 06:29] LABS: CHLORIDE 107 mmol/L (98-107); POTASSIUM 3.4 mmol/L (3.5-5.1); SODIUM 139 mmol/L (136-145)
[2021-04-26 06:36] LABS: BUN 11 mg/dl (7-24); CREATININE 0.72 mg/dL (0.55-1.02)
== END 2021-04-26 16:11 | disposition home health service (06) | DRG 948 ==
LOC: ED 16:10 → EDHOLD 18:45
PROVIDERS: Emergency Medicine; Internal Medicine; ADMIT Internal Medicine; ATTEND Internal Medicine
DX: R53.1 Weakness (principal); I50.32 Chronic diastolic (congestive) heart failure; R26.2 Difficulty in walking, not elsewhere classified; G20 Parkinson's disease; Z20.822 Contact with and (suspected) exposure to COVID-19; F17.210 Nicotine dependence, cigarettes, uncomplicated; E87.8 Other disorders of electrolyte and fluid balance, not elsewhere classified; R73.9 Hyperglycemia, unspecified; E83.41 Hypermagnesemia; J44.9 Chronic obstructive pulmonary disease, unspecified; F41.1 Generalized anxiety disorder; E78.2 Mixed hyperlipidemia; F32.9 Major depressive disorder, single episode, unspecified; I11.0 Hypertensive heart disease with heart failure; K21.9 Gastro-esophageal reflux disease without esophagitis; Z86.73 Personal history of transient ischemic attack (TIA), and cerebral infarction without residual deficits; Z80.1 Family history of malignant neoplasm of trachea, bronchus and lung; Z79.82 Long term (current) use of aspirin; Z79.899 Other long term (current) drug therapy; Z71.6 Tobacco abuse counseling

== ENCOUNTER → 2021-05-13 | Outpatient (CLI) | payer MEDICARE ==
[~2021-05-13] MED LIST changes: +VISTARIL25 MG PO
== END | disposition home or self-care (01) ==
LOC: CARD 05-07 07:30
PROVIDERS: ATTEND Internal Medicine Cardiovascular Disease
DX: I51.7 Cardiomegaly (principal); I20.9 Angina pectoris, unspecified

== ENCOUNTER → 2022-02-26 | Outpatient (CLI) | payer MEDICARE ==
[2022-02-26 10:27] LABS: BASO # 0.1 10*3/uL (0.0-0.1); BASO % 0.7 % (0.0-1.0); EOS # 0.2 10*3/uL (0.0-0.4); EOS % 2.3 % (1.0-4.0); HEMATOCRIT 41.2 % (37.0-47.0); LYMPH # 1.1 10*3/uL (1.3-4.4); LYMPH % 16.3 % (27.0-41.0); MEAN CELL VOLUME 88.8 fl (81.0-99.0); MEAN CORPUSCULAR HGB 28.4 pg (27.0-31.0); MEAN PLATELET VOLUME 9.7 fl (9.6-12.3); MONO # 0.5 10*3/uL (0.1-1.0); MONO % 6.9 % (3.0-9.0); NEUT % 73.5 % (47.0-73.0); PLATELET COUNT AUTOMATED 189 10*3/uL (130-400); RED BLOOD COUNT 4.64 10*6/uL (4.10-5.10); RED CELL DISTRI WIDTH 12.9 % (0-14.5); WHITE BLOOD COUNT 6.8 10*3/uL (4.8-10.8)
[2022-02-26 10:45] LABS: BUN 30 mg/dl (7-24); CHLORIDE 108 mmol/L (98-107); CHOLESTEROL 161 mg/dL (<200); CREATININE 0.94 mg/dL (0.55-1.02); IRON 134 ug/dL (50-170); POTASSIUM 4.2 mmol/L (3.5-5.1); SGOT/AST 21 IU/L (3-35); SGPT/ALT 21 U/L (12-78); SODIUM 141 mmol/L (136-145); TOTAL PROTEIN 6.8 gm/dL (6.4-8.2); TRIGLYCERIDES 137 mg/dl (<150)
[2022-02-26 10:46] LABS: ALKALINE PHOSPHATASE 105 U/L (45-117)
[2022-02-26 10:47] LABS: LDL CHOLESTEROL 79 mg/dL (9-159)
[2022-02-26 11:10] LABS: VITAMIN D, 25-HYDROXY 37.4 ng/mL (30-100)
[2022-02-26 11:11] LABS: FERRITIN 35.9 ng/mL (10.0-291.0)
== END | disposition home or self-care (01) ==
LOC: LAB 10:01
PROVIDERS: Family Medicine; ATTEND Family Medicine
DX: I25.10 Atherosclerotic heart disease of native coronary artery without angina pectoris (principal); E83.41 Hypermagnesemia; E55.9 Vitamin D deficiency, unspecified; D50.0 Iron deficiency anemia secondary to blood loss (chronic); R73.9 Hyperglycemia, unspecified; M85.88 Other specified disorders of bone density and structure, other site; M41.84 Other forms of scoliosis, thoracic region

== ENCOUNTER 2022-05-10 11:43 | Emergency (ER) | payer MEDICARE ==
[~2022-05-10] VITALS: Ht 152.4 cm; Wt 55.8 kg
== END 2022-05-10 12:13 | disposition home or self-care (01) ==
LOC: ED 11:43
DX: L89.312 Pressure ulcer of right buttock, stage 2 (principal); Z79.82 Long term (current) use of aspirin; Z79.899 Other long term (current) drug therapy

== ENCOUNTER → 2022-05-12 | Outpatient (CLI) | payer MEDICARE ==
[~2022-05-12] MED LIST changes: +PREDNISONE50 MG PO
== END | disposition home or self-care (01) ==
LOC: WOUNDCARE 02:17
PROVIDERS: ATTEND Nurse Practitioner Family
DX: S30.810A Abrasion of lower back and pelvis, initial encounter (principal); I10 Essential (primary) hypertension; I25.10 Atherosclerotic heart disease of native coronary artery without angina pectoris; F17.290 Nicotine dependence, other tobacco product, uncomplicated; Z96.649 Presence of unspecified artificial hip joint; Z86.73 Personal history of transient ischemic attack (TIA), and cerebral infarction without residual deficits; Z79.82 Long term (current) use of aspirin; X58.XXXA Exposure to other specified factors, initial encounter; Y93.89 Activity, other specified; Y92.89 Other specified places as the place of occurrence of the external cause; Y99.8 Other external cause status

== ENCOUNTER 2022-05-14 13:54 | Emergency (ER) | payer MEDICARE ==
[~2022-05-14] VITALS: Ht 152.4 cm; Wt 54.4 kg
[~2022-05-14 13:54] MED LIST changes: -PREDNISONE50 MG PO
== END 2022-05-14 16:50 | disposition home or self-care (01) ==
LOC: ED 13:54
DX: S93.602A Unspecified sprain of left foot, initial encounter (principal); Z79.899 Other long term (current) drug therapy; Z79.82 Long term (current) use of aspirin; Z98.890 Other specified postprocedural states; Z87.891 Personal history of nicotine dependence; W18.39XA Other fall on same level, initial encounter; Y93.89 Activity, other specified; Y92.89 Other specified places as the place of occurrence of the external cause; Y99.8 Other external cause status

== ENCOUNTER → 2022-05-22 | Outpatient (CLI) | payer MEDICARE ==
[~2022-05-22] MED LIST changes: +PREDNISONE50 MG PO
== END | disposition home or self-care (01) ==
LOC: WOUNDCARE 02:17
PROVIDERS: ATTEND Nurse Practitioner Family
DX: S31.819D Unspecified open wound of right buttock, subsequent encounter (principal); I10 Essential (primary) hypertension; I25.10 Atherosclerotic heart disease of native coronary artery without angina pectoris; F17.290 Nicotine dependence, other tobacco product, uncomplicated; Z96.649 Presence of unspecified artificial hip joint; Z86.73 Personal history of transient ischemic attack (TIA), and cerebral infarction without residual deficits; X58.XXXD Exposure to other specified factors, subsequent encounter

== ENCOUNTER 2022-05-25 08:24 | Emergency (ER) | payer MEDICARE ==
[~2022-05-25] VITALS: Ht 152.4 cm; Wt 61.9 kg
[~2022-05-25 08:24] MED LIST changes: -PREDNISONE50 MG PO
[2022-05-25 09:36] LABS: BASO % 0.5 % (0.0-1.0); EOS # 0.2 10*3/uL (0.0-0.4); HEMATOCRIT 40.7 % (37.0-47.0); LYMPH % 13.8 % (27.0-41.0); MEAN CELL VOLUME 87.9 fl (81.0-99.0); MEAN CORPUSCULAR HGB 28.9 pg (27.0-31.0); MEAN CORPUSCULAR HGB CONC 32.9 g/dl (33.0-37.0); MEAN PLATELET VOLUME 9.2 fl (9.6-12.3); MONO # 0.6 10*3/uL (0.1-1.0); MONO % 7.6 % (3.0-9.0); NEUT # 5.7 10*3/uL (2.3-7.9); NEUT % 75.6 % (47.0-73.0); PLATELET COUNT AUTOMATED 232 10*3/uL (130-400); RED BLOOD COUNT 4.63 10*6/uL (4.10-5.10); RED CELL DISTRI WIDTH 12.6 % (0-14.5); WHITE BLOOD COUNT 7.5 10*3/uL (4.8-10.8)
[2022-05-25 09:50] LABS: ACT PARTIAL THROMBO TIME 24.5 SECONDS (20.0-32.1)
[2022-05-25 09:55] LABS: ALKALINE PHOSPHATASE 127 U/L (45-117); BUN 28 mg/dl (7-24); CHLORIDE 108 mmol/L (98-107); CREATININE 0.92 mg/dL (0.55-1.02); POTASSIUM 4.7 mmol/L (3.5-5.1); SGOT/AST 19 IU/L (3-35); SGPT/ALT 20 U/L (12-78); SODIUM 141 mmol/L (136-145); TOTAL PROTEIN 6.9 gm/dL (6.4-8.2)
[2022-05-25] MEDS ORDERED: PREDNISONE50 MG PO (11:53)
[2022-05-25] MEDS ORDERED: LEVOFLOXACIN750 M2 PO (11:53)
== END 2022-05-25 13:51 | disposition home or self-care (01) ==
LOC: ED 08:24
PROVIDERS: Emergency Medicine
DX: J18.9 Pneumonia, unspecified organism (principal); Z20.822 Contact with and (suspected) exposure to COVID-19; J44.1 Chronic obstructive pulmonary disease with (acute) exacerbation; E78.5 Hyperlipidemia, unspecified; K21.9 Gastro-esophageal reflux disease without esophagitis; I10 Essential (primary) hypertension; F17.200 Nicotine dependence, unspecified, uncomplicated; Z79.899 Other long term (current) drug therapy; Z79.82 Long term (current) use of aspirin; Z86.73 Personal history of transient ischemic attack (TIA), and cerebral infarction without residual deficits; Z98.890 Other specified postprocedural states

== ENCOUNTER 2022-08-10 08:41 | Emergency (ER) | payer MEDICARE ==
[~2022-08-10] VITALS: Ht 152.4 cm; Wt 64.0 kg
[~2022-08-10 08:41] MED LIST changes: +PREDNISONE50 MG PO
[2022-08-10 09:09] LABS: HEMATOCRIT 43.1 % (37.0-47.0); MEAN CELL VOLUME 87.8 fl (81.0-99.0); MEAN CORPUSCULAR HGB 28.5 pg (27.0-31.0); MEAN CORPUSCULAR HGB CONC 32.5 g/dl (33.0-37.0); MEAN PLATELET VOLUME 9.4 fl (9.6-12.3); PLATELET COUNT AUTOMATED 206 10*3/uL (130-400); RED BLOOD COUNT 4.91 10*6/uL (4.10-5.10); RED CELL DISTRI WIDTH 12.7 % (0-14.5); WHITE BLOOD COUNT 17.2 10*3/uL (4.8-10.8)
[2022-08-10 09:11] LABS: MANUAL DIFF REFLEX YES
[2022-08-10 09:25] LABS: ALKALINE PHOSPHATASE 114 U/L (46-116); BUN 17 mg/dl (9-23); CHLORIDE 105 mmol/L (98-107); POTASSIUM 4.2 mmol/L (3.4-5.1); SGPT/ALT 11 U/L (10-49); TOTAL PROTEIN 6.8 gm/dL (6.0-8.0)
[2022-08-10 09:41] LABS: BASOPHILS 1 % (0-1); PLATELET SUFFICIENCY NORMAL (NORMAL); TOTAL CELLS COUNTED 100 #CELLS; TOXIC GRANULATION SLIGHT; VACUOLATION OF NEUTROPHILS SLIGHT
[2022-08-10 09:42] LABS: POLYCHROMASIA SLIGHT
[2022-08-10] MEDS ORDERED: ZITHROMAX250 MG PO ×2 (09:48)
[2022-08-10] MEDS ORDERED: ONDANSETRON HYDR4 M1 PO ×2 (09:48)
[2022-08-10] MEDS ORDERED: PREDNISONE50 MG PO ×2 (09:48)
== END 2022-08-10 09:55 | disposition home or self-care (01) ==
LOC: ED 08:41
PROVIDERS: Student in an Organized Health Care Education/Training Program
DX: K52.9 Noninfective gastroenteritis and colitis, unspecified (principal); J18.9 Pneumonia, unspecified organism; Z79.899 Other long term (current) drug therapy; Z79.82 Long term (current) use of aspirin; Z98.890 Other specified postprocedural states; Z87.891 Personal history of nicotine dependence

== ENCOUNTER 2022-09-08 15:56 | Emergency (ER) | payer MEDICARE ==
[~2022-09-08] VITALS: Ht 152.4 cm; Wt 55.8 kg
[~2022-09-08 15:56] MED LIST changes: +ONDANSETRON HYDR4 M1 PO
[2022-09-08 17:00] LABS: BASO % 0.6 % (0.0-1.0); EOS # 0.2 10*3/uL (0.0-0.4); EOS % 2.6 % (1.0-4.0); HEMATOCRIT 39.9 % (37.0-47.0); LYMPH # 1.3 10*3/uL (1.3-4.4); LYMPH % 18.8 % (27.0-41.0); MEAN CELL VOLUME 89.5 fl (81.0-99.0); MEAN CORPUSCULAR HGB 28.3 pg (27.0-31.0); MEAN CORPUSCULAR HGB CONC 31.6 g/dl (33.0-37.0); MEAN PLATELET VOLUME 9.4 fl (9.6-12.3); MONO # 0.5 10*3/uL (0.1-1.0); MONO % 7.5 % (3.0-9.0); NEUT # 4.7 10*3/uL (2.3-7.9); NEUT % 70.2 % (47.0-73.0); PLATELET COUNT AUTOMATED 220 10*3/uL (130-400); RED BLOOD COUNT 4.46 10*6/uL (4.10-5.10); RED CELL DISTRI WIDTH 13.1 % (0-14.5); WHITE BLOOD COUNT 6.6 10*3/uL (4.8-10.8)
[2022-09-08 17:15] LABS: ACT PARTIAL THROMBO TIME 24.2 SECONDS (20.0-32.1); INTERNATIONAL NORM RATIO 0.9 (2.0-3.5)
[2022-09-08 17:20] LABS: ALKALINE PHOSPHATASE 111 U/L (46-116); BUN 22 mg/dl (9-23); CHLORIDE 102 mmol/L (98-107); LIPASE 38 U/L (12-53); SGPT/ALT 16 U/L (10-49); TOTAL PROTEIN 6.7 gm/dL (6.0-8.0)
[2022-09-08 18:30] LABS: BILIRUBIN Negative (Negative); BLOOD Negative (Negative); CLARITY Clear (Clear); COLOR Yellow (Yellow); GLUCOSE Negative (Negative); KETONE Negative (Negative); LEUKO ESTERASE 1+ (Negative); NITRITE Negative (Negative); SPECIFIC GRAVITY 1.015 (1.001-1.030); UROBILINOGEN 0.2 E.U./dl (0.0-1.0)
[2022-09-08 18:52] LABS: RBC 0-2 rbc/hpf (0-2)
[2022-09-08] MEDS ORDERED: ONDANSETRON4 MG SL (19:33)
== END 2022-09-08 20:23 | disposition home or self-care (01) ==
LOC: ED 15:56
PROVIDERS: Emergency Medicine
DX: B34.9 Viral infection, unspecified (principal); R11.2 Nausea with vomiting, unspecified; Z79.899 Other long term (current) drug therapy

== ENCOUNTER → 2022-09-23 | Outpatient (CLI) | payer MEDICARE ==
[~2022-09-23] MED LIST changes: +OMNICEF300 MG PO; +ONDANSETRON4 MG SL
== END | disposition home or self-care (01) ==
LOC: RAD/SH 08:39
PROVIDERS: ATTEND Family Medicine
DX: R13.10 Dysphagia, unspecified (principal); R11.2 Nausea with vomiting, unspecified

== ENCOUNTER → 2022-09-24 | Outpatient (CLI) | payer MEDICARE | END | disposition home or self-care (01) | LOC: MAMMO 00:38 | PROVIDERS: ATTEND Internal Medicine Hematology & Oncology | DX: C34.31 Malignant neoplasm of lower lobe, right bronchus or lung (principal); N64.89 Other specified disorders of breast; R92.2 Inconclusive mammogram; R92.1 Mammographic calcification found on diagnostic imaging of breast ==

== ENCOUNTER 2023-01-19 11:39 | Inpatient (IN) | payer OTHER ==
[~2023-01-19 11:39] MED LIST changes: +ALBUTEROL S5 MG/1 ML INH; +BENZONATATE100 M1 PO; +BUSPAR15 MG PO; +FLOVENT HFA12 G1 INH; +PROVENTIL HFA6.7 GM INH; +PROZAC10 MG PO
[2023-01-19 12:00] VITALS: BP 146/88
[2023-01-19 20:00] VITALS: BP 180/86
[2023-01-20] VITALS: BP 157/83
[2023-01-20 08:00] VITALS: BP 171/87
[2023-01-20 12:00] VITALS: BP 173/93
[2023-01-20 15:36] VITALS: BP 156/86
[2023-01-20 20:00] VITALS: BP 148/98
[2023-01-21 08:00] VITALS: BP 193/98
[2023-01-21 16:00] VITALS: BP 153/92
[2023-01-22] VITALS: BP 96/54
[2023-01-22 08:00] VITALS: BP 80/49
== END 2023-01-22 14:30 | DRG 181 ==
LOC: 4E 11:39
PROVIDERS: ADMIT Internal Medicine; ATTEND Internal Medicine
DX: C34.90 Malignant neoplasm of unspecified part of unspecified bronchus or lung (principal); I50.32 Chronic diastolic (congestive) heart failure; J44.1 Chronic obstructive pulmonary disease with (acute) exacerbation; Z66 Do not resuscitate; E78.5 Hyperlipidemia, unspecified; F41.1 Generalized anxiety disorder; Z51.5 Encounter for palliative care; F32.A Depression, unspecified; I10 Essential (primary) hypertension; K21.9 Gastro-esophageal reflux disease without esophagitis; G20 Parkinson's disease